=== PATIENT | female | born 1950 | race Caucasian/White ===

== ENCOUNTER 2016-11-08 09:17 | Outpatient (CLI) ==
[2015-09-28 12:36] VITALS: BMI 46.9
--- NOTE | 2016-11-08 10:06 | DI ---
EXAM: LUMBAR SPINE 5 VIEWS HISTORY: Lumbar facet joint arthropathy and degenerative disc disease FINDINGS / IMPRESSION: [No scoliosis. Sacroiliac joints are within normal limits. Bilateral obliq ue views reveal intact pars interarticularis structures. There is moderate to severe degenerative f acet disease lumbosacral junction. Minimal anterior spondylolisthesis of L4 on L5 by approximately 0.44 cm. No loss of vertebral body height or acute fracture.
== END 2016-11-08 09:18 | disposition home or self-care (01) ==
LOC: RAD 09:17
PROVIDERS: ATTEND Pain Medicine Interventional Pain Medicine
DX: M47.816 Spondylosis without myelopathy or radiculopathy, lumbar region (principal); M47.817 Spondylosis without myelopathy or radiculopathy, lumbosacral region; M51.36 Other intervertebral disc degeneration, lumbar region; M51.37 Other intervertebral disc degeneration, lumbosacral region

== ENCOUNTER → 2016-12-28 | Outpatient (RCR) ==
[2015-09-28 12:36] VITALS: BMI 46.9
--- NOTE | 2016-12-09 13:29 | RS.OPPTEV2 ---
Date of Note: 12/08/16 Visit #: 1 Date of Evaluation: 12/08/16 Payer Source: Medicaid Date of Onset/Injury/Change in Status: 11/12/16 Surgery Performed?: Yes (right TKA) Date of Procedure: 11/12/16 Treatment Diagnosis: Right knee pain, stiffness, s/p Right TKA History of Condition/Mechanism of Injury:: Patient has had no other surgeries to this right knee. She had Left TKA in 2007 and had to have a revision in 2009. Prior Level of Function.....Patient was independent with: ADL's, Self Care, Caregiving, Ambulation/Mobility, Community Integration/Access Functional Limitations: Sleep, Self Care, ADL's, Reaching, Pushing, Pulling, Lifting, Carrying, Sitting, Standing, Bending, Squatting, Ambulation, Community Access/Integration Current Subjective/complaints:: Patient reports she was at [facility] for 2 weeks for therapy. She was discharged home a week ago on 11/30/16. She had her anali removed a week ago today. She is currently staying at her boyfriend's home. There are no steps at his home. She is ambulating with a rolling walker , but states she has ambulated in the house without it, holding onto furniture. Reports pain in the knee and lower leg. States she had a blister on her heel following surgery, which is now mostly healed. States her low back has been bothering her more than her knee. Treatment Side (optional): Right *Precautions: LATEX ALLERGY Medical History Medical History: Hypertension, COPD, Diabetes, Arthritis Surgical History Comments:: Left TKA 2007, revision 2009. Right TKA 11/12/16 Smoking Status: Never smoker Patient's Goals: States she wants to return to her previous level of function. Pain Assessment - Pain Description Pain Location: right knee and lower leg Pain Description: Throbbing, Aching Current Pain Intensity: 4-5/10 Functional Outcome Measure LE Functional Scale: 24 (24/80=70% impairment) - G Codes & Severity Modifier G Codes & Modifier: NA Source of G Code score: NA Observation - Observation Inspection: Right knee presents with a well healing, clean incision line. Swelling is present throughout the knee, lower leg, and ankle. Girth Measurement Lower: Right malleoi 29.5 cm, tibial plateau 43 cm Gait - Gait Pattern Gait Comments: Patient ambulates with a rolling walker with decreased stance phase on the right LE. Demonstrates decreased Right knee and hip flexion on the right during swing phase. Also does no demonstrate full heel strike on the right LE. - Left Knee ROM Left Knee Extension: full extension Left Knee Flexion: 112 (degrees AROM) - Right Knee ROM Right Knee Extension: -15 degrees from full extension Right Knee Flexion: 82 (degrees AROM) Knee ROM Limitations: Soft Tissue Tightness, Pain - Left Knee Strength Left Knee Extension: 5 Normal Left Knee Flexion: 5 Normal - Right Knee Strength Right Knee Extension: 4- Good- Right Knee Flexion: 4- Good- Sensation - Sensation Comments: Reports decreased sensation along the lateral side of the incision. States palmar aspect of the right foot also has less sensation. Interventions - Exercise/Activities/Manual Therapy Exercises/Activities: Patient assisted with right knee ROM into flexion/ extension. She performs Quad sets, SLR, SAQ's without weight, and HS curls and DF with red theraband. Manual Therapy: NA HOME EXERCISE PROGRAM: Patient advised to continue with exercises she was given at the hospital, with emphasis on ROM. - Charges Total Direct Minutes: 49 mins Total Treatment Time: 49 mins Procedures billed for this date of service:: EVAL medium Assessment Assessment: Patient presents s/p right TKA. She demonstrates limited right knee AROM and weakness in the quads and HS. Her ambulation currently requires a rolling walker and she demonstrates several gait deviations. She is limited with her abilities with selfcare and ADL's due to limited knee ROM. She will benefit from therapy to regain functional right knee AROM to be able to perform all activities independently and ambulate without assistive device. Patient Education: Education of diagnosis, Body/Joint mechanics, Home Exercise Program, Home Safety, Activity Modification, Education of Plan of Care Rehab Potential: Good Short Term Goals Goal #1: Right knee extension to -5 degrees. Goal to be met by: 12/23/16 Goal #2: Right knee active flexion to 105 degrees. Goal to be met by: 12/30/16 Goal #3: Right quad strength 4+/5. Goal to be met by: 12/30/16 Goal #4: Patient independent with basic HEP. Goal to be met by: 12/23/16 Group Home Goals Goal #1: Pt knows HEP and to continue exercises to maintain functional level at D/C. Goal to be met by: 01/23/17 Goal #2: Score on LE functional scale improved to 54/80. Goal to be met by: 01/23/17 Goal #3: Right knee AROM WFL's for pt to perform all selfcare and ADL's. Goal to be met by: 01/23/17 Goal #4: Pt to amb. w/o assistive device community distances w/ min. gait deviation. Goal to be met by: 01/23/17 Plan - Treatment to be Provided Procedures: Therapeutic Exercises, Therapeutic Activity, Gait Training, Manual Therapy, Patient Education Modalities: Electrical Stimulation, Cryotherapy, Hot Packs - Treatment Plan Frequency: 3 X week Duration: 6 weeks ORDER # VISITS AND/OR THROUGH DATE: 01/23/17 - Treatment Code (1) Knee pain Qualifiers: Laterality: right Chronicity: acute Qualified Description: Acute pain of right knee Qualifier Code(s): (M25.561) Pain in right knee (2) Knee stiffness Qualifiers: Laterality: right Qualified Description: Knee stiffness, right Qualifier Code(s): (M25.661) Stiffness of right knee, not elsewhere classified (3) Aftercare following joint replacement surgery Qualifiers: Joint replacement surgery site: knee Laterality: right Qualified Description: Aftercare following right knee joint replacement surgery Qualifier Code(s): (Z47.1) Aftercare following joint replacement surgery, ( Z96.651) Presence of right artificial knee joint
--- NOTE | 2016-12-09 16:27 | RS.OPPTDN ---
Subjective Date of Note: 12/09/16 Visit #: 2 Date of Evaluation: 12/08/16 Payer Source: Medicaid Treatment Diagnosis: Right knee pain, stiffness, s/p Right TKA Current Subjective/complaints:: Patient reports being very sore all last night. States pain medication and ice did not help ease the pain. *Precautions: LATEX ALLERGY Pain Assessment - Pain Description Pain Location: right knee and lower leg Pain Description: Throbbing, Aching Current Pain Intensity: 4-5/10 - Treatment Modality: Electrical Stim Unattended Parameters/Method Applied: 4 large pads crossed current to right knee X 15 mins at 145 peak volts. Patient Position: Supine - Heat/Cryotherapy Treatment: Cryotherapy (with Estim to the right knee) Interventions - Exercise/Activities/Manual Therapy Exercises/Activities: Patient assisted with right knee ROM into flexion/ extension. She performs Quad sets with towel roll under ankle, SLR's, SAQ's w/ 2# weight, and HS curls and DF with red theraband. Total minutes of Exercise: X 20 mins Manual Therapy: NA HOME EXERCISE PROGRAM: Patient advised to continue with exercises she was given at the hospital, with emphasis on ROM. - Charges Total Direct Minutes: 20 mins Total Treatment Time: 35 mins Procedures billed for this date of service:: CP, EStim, Ex Assessment: Patient reported significant soreness following yesterday's visit. Tolerated exercises well today and reported less discomfort after Estim/CP. Will benefit from continued exercises and modalities. Patient Education: Education of diagnosis, Body/Joint mechanics, Home Exercise Program, Home Safety, Activity Modification, Education of Plan of Care Patient demonstrates compliance with HEP?: Yes Short Term Goals Goal #1: Right knee extension to -5 degrees. Goal to be met by: 12/23/16 Goal #2: Right knee active flexion to 105 degrees. Goal to be met by: 12/30/16 Goal #3: Right quad strength 4+/5. Goal to be met by: 12/30/16 Goal #4: Patient independent with basic HEP. Goal to be met by: 12/23/16 Correction Goals Goal #1: Pt knows HEP and to continue exercises to maintain functional level at D/C. Goal to be met by: 01/23/17 Goal #2: Score on LE functional scale improved to 54/80. Goal to be met by: 01/23/17 Goal #3: Right knee AROM WFL's for pt to perform all selfcare and ADL's. Goal to be met by: 01/23/17 Goal #4: Pt to amb. w/o assistive device community distances w/ min. gait deviation. Goal to be met by: 01/23/17 Plan PLAN OF CARE EXPIRES ON:: 01/23/17 ORDER # VISITS AND/OR THROUGH DATE: 01/23/17 PLAN: Continue Plan of Care
--- NOTE | 2016-12-13 16:29 | RS.OPPTDN ---
Subjective Date of Note: 12/13/16 Visit #: 3 Date of Evaluation: 12/08/16 Payer Source: Medicaid Treatment Diagnosis: Right knee pain, stiffness, s/p Right TKA Current Subjective/complaints:: Patient says she "over did it" yesterday. States she cleaned her home and vacuumed causing increased swelling and pain to the R knee. She says she is able to see improvement with mobility however, with beginning therapy. *Precautions: LATEX ALLERGY Pain Assessment - Pain Description Pain Location: right knee and lower leg Pain Description: Throbbing, Aching Current Pain Intensity: "more today" - Treatment Modality: Electrical Stim Unattended Parameters/Method Applied: Hivolt 4 large pads cross current @ 170-200 pk volts to the R knee after therex x 20 mins Patient Position: Supine - Heat/Cryotherapy Treatment: Cryotherapy Interventions - Exercise/Activities/Manual Therapy Exercises/Activities: Patient assisted with right knee ROM into flexion/ extension, stretching to the heel cords. Patellar mobs, QS several times with ankle over bolster and then without. Rec's stretching for extension with ankle over bolster. She performs SLR's, SAQ's w/ 2# weight, and HS curls and DF with red latex free theraband. Hip abd, pillow squeezes, heel slides with overpressures by MEMBER OF TECH[employer]ICAL [employer]. Total minutes of Exercise: 26 Manual Therapy: NA HOME EXERCISE PROGRAM: Patient advised to continue with exercises she was given at the hospital, with emphasis on ROM. - Charges Total Direct Minutes: 26 Total Treatment Time: 46 Procedures billed for this date of service:: cp, estim (un), ex2 Assessment: Patient with elevated pain over the weekend related to house cleaning. She performed all therex well today, with only slight discomfort. General fatigue noted with SLR. Modalities eased symptoms greatly. Patient Education: Education of diagnosis, Body/Joint mechanics, Home Exercise Program, Home Safety, Activity Modification, Education of Plan of Care Patient demonstrates compliance with HEP?: Yes Short Term Goals Goal #1: Right knee extension to -5 degrees. Goal to be met by: 12/23/16 Goal #2: Right knee active flexion to 105 degrees. Goal to be met by: 12/30/16 Goal #3: Right quad strength 4+/5. Goal to be met by: 12/30/16 Goal #4: Patient independent with basic HEP. Goal to be met by: 12/23/16 Jail Goals Goal #1: Pt knows HEP and to continue exercises to maintain functional level at D/C. Goal to be met by: 01/23/17 Goal #2: Score on LE functional scale improved to 54/80. Goal to be met by: 01/23/17 Goal #3: Right knee AROM WFL's for pt to perform all selfcare and ADL's. Goal to be met by: 01/23/17 Goal #4: Pt to amb. w/o assistive device community distances w/ min. gait deviation. Goal to be met by: 01/23/17 Plan PLAN OF CARE EXPIRES ON:: 01/23/17 ORDER # VISITS AND/OR THROUGH DATE: 01/23/17 PLAN: Progress Exercises
--- NOTE | 2016-12-15 16:45 | RS.OPPTDN ---
Subjective Date of Note: 12/15/16 Visit #: 4 Date of Evaluation: 12/08/16 Payer Source: Medicaid Treatment Diagnosis: Right knee pain, stiffness, s/p Right TKA Current Subjective/complaints:: Patient states last night her feet were so swollen they looked like the skin would explode. States she doesn't know why she has more swelling. She has been icing and elevating her leg. Reports pressure sore on lateral side of right heel is sore. Asks what she can put on it. *Precautions: LATEX ALLERGY Pain Assessment - Pain Description Pain Location: right knee and lower leg Pain Description: Throbbing, Aching Current Pain Intensity: sore - Treatment Modality: Electrical Stim Unattended Parameters/Method Applied: 4 large pads crossed HVGS X 20 mins with cp up to 155 peak volts Patient Position: Supine Comments: following exercises - Heat/Cryotherapy Treatment: Cryotherapy Interventions - Exercise/Activities/Manual Therapy Exercises/Activities: Patient assisted with right knee ROM into flexion/ extension, stretching to the heel cords. Patellar mobs and QS with ankle over bolster. Rec's stretching for extension with ankle over bolster. She performs SLR's, SAQ's w/ 3# weight, and HS curls and DF with red latex free theraband. Patient's cheeks turned red as if she was overheated. stopped exercises and put ice and Estim to knee. Patient given a cup of ice water. Total minutes of Exercise: X 14 mins Manual Therapy: NA HOME EXERCISE PROGRAM: Patient advised to continue with exercises she was given at the hospital, with emphasis on ROM. - Charges Total Direct Minutes: 14 mins Total Treatment Time: 34 mins Procedures billed for this date of service:: Ex, Estim, CP Assessment: Patient tolerates exercises well. She is concerned about swelling in her feet. She is compliant with HEP and icing the knee. Recommended she continue with icing and elevating the knee and HEP. Patient Education: Education of diagnosis, Body/Joint mechanics, Home Exercise Program, Home Safety, Activity Modification, Education of Plan of Care Patient demonstrates compliance with HEP?: Yes Short Term Goals Goal #1: Right knee extension to -5 degrees. Goal to be met by: 12/23/16 Progress towards Goal:: Progressing Goal #2: Right knee active flexion to 105 degrees. Goal to be met by: 12/30/16 Progress towards Goal:: Progressing Goal #3: Right quad strength 4+/5. Goal to be met by: 12/30/16 Progress towards Goal:: Progressing Goal #4: Patient independent with basic HEP. Goal to be met by: 12/23/16 Progress towards Goal:: Progressing [facility] Goals Goal #1: Pt knows HEP and to continue exercises to maintain functional level at D/C. Goal to be met by: 01/23/17 Goal #2: Score on LE functional scale improved to 54/80. Goal to be met by: 01/23/17 Goal #3: Right knee AROM WFL's for pt to perform all selfcare and ADL's. Goal to be met by: 01/23/17 Goal #4: Pt to amb. w/o assistive device community distances w/ min. gait deviation. Goal to be met by: 01/23/17 Plan PLAN OF CARE EXPIRES ON:: 01/23/17 ORDER # VISITS AND/OR THROUGH DATE: 01/23/17 PLAN: Progress Exercises
--- NOTE | 2016-12-17 16:19 | RS.OPPTDN ---
Subjective Date of Note: 12/17/16 Visit #: 5 Date of Evaluation: 12/08/16 Payer Source: Medicaid Treatment Diagnosis: Right knee pain, stiffness, s/p Right TKA Current Subjective/complaints:: Patient states right knee is sore today. States she has been out most of the day running errands. She is performing exercises at home, trying bend the knee. *Precautions: LATEX ALLERGY Pain Assessment - Pain Description Pain Location: right knee and lower leg Pain Description: Throbbing, Aching Current Pain Intensity: sore - Treatment Modality: Electrical Stim Unattended Parameters/Method Applied: 4 large pads, one lead to each side of leg X 20 mins with CP. lateral knee lead up to 250 peak volts, medial region lead taken to 180 peak volts. Patient Position: Supine - Heat/Cryotherapy Treatment: Cryotherapy Interventions - Exercise/Activities/Manual Therapy Exercises/Activities: Patient assisted with right knee ROM into flexion/ extension, stretching to the heel cords. Patellar mobs and QS with ankle over bolster. Rec's stretching for extension with ankle over bolster. She performs SLR's, SAQ's w/ 4# weight, and HS curls and DF with red latex free theraband. Performed on stationary bike for pedal rocks and then was able to make full revolution with slight right hip hiking. Total minutes of Exercise: X 19 mins Manual Therapy: NA HOME EXERCISE PROGRAM: Patient advised to continue with exercises she was given at the hospital, with emphasis on ROM. - Charges Total Direct Minutes: 19 mins Total Treatment Time: 39 mins Procedures billed for this date of service:: Ex, CP , Estim Assessment: Patient tolerates exercises well. She demonstrates good tolerance with exercises. Right knee flexion and extension is gradually improving. Swelling continues to limit ROM. Patient Education: Education of diagnosis, Body/Joint mechanics, Home Exercise Program, Home Safety, Activity Modification, Education of Plan of Care Patient demonstrates compliance with HEP?: Yes Short Term Goals Goal #1: Right knee extension to -5 degrees. Goal to be met by: 12/23/16 Progress towards Goal:: Progressing Goal #2: Right knee active flexion to 105 degrees. Goal to be met by: 12/30/16 Progress towards Goal:: Progressing Goal #3: Right quad strength 4+/5. Goal to be met by: 12/30/16 Progress towards Goal:: Progressing Goal #4: Patient independent with basic HEP. Goal to be met by: 12/23/16 Progress towards Goal:: Progressing Longterm Goals Goal #1: Pt knows HEP and to continue exercises to maintain functional level at D/C. Goal to be met by: 01/23/17 Goal #2: Score on LE functional scale improved to 54/80. Goal to be met by: 01/23/17 Goal #3: Right knee AROM WFL's for pt to perform all selfcare and ADL's. Goal to be met by: 01/23/17 Progress towards goal: Progressing Goal #4: Pt to amb. w/o assistive device community distances w/ min. gait deviation. Goal to be met by: 01/23/17 Plan PLAN OF CARE EXPIRES ON:: 01/23/17 ORDER # VISITS AND/OR THROUGH DATE: 01/23/17 PLAN: Progress Exercises
--- NOTE | 2016-12-20 12:50 | RS.OPPTDN ---
Subjective Date of Note: 12/20/16 Visit #: 6 Date of Evaluation: 12/08/16 Payer Source: Medicaid Treatment Diagnosis: Right knee pain, stiffness, s/p Right TKA Current Subjective/complaints:: Reports doing her exercises at home as tolerated. *Precautions: LATEX ALLERGY Pain Assessment - Pain Description Pain Location: right knee and lower leg Pain Description: Throbbing, Aching Current Pain Intensity: not rated - Treatment Modality: Electrical Stim Unattended Parameters/Method Applied: 20 mins. high volt,lateral aspect of knee @ 325pv, medial aspect of knee @ 235pv. Patient Position: Supine - Heat/Cryotherapy Treatment: Cryotherapy (concurrent with e-stim) Interventions - Exercise/Activities/Manual Therapy Exercises/Activities: 20 mins. total TKA protocol in supine today with 4# resistance for AROm,except for ankle pumps done with latex free red theraband exercises.Grade I and II mobs for AP glides.Extension is WNL passively,flexion ais 95 actively,100 with stretch(but painful). Total minutes of Exercise: 20 Manual Therapy: NA HOME EXERCISE PROGRAM: Patient advised to continue with exercises she was given at the hospital, with emphasis on ROM. - Charges Total Direct Minutes: 20 Total Treatment Time: 40 Procedures billed for this date of service:: ex,cp,e-stim Assessment: Patient has good undestanding of the knee protocol,as she has had 2 previous surgeries on the L knee.The R knee has minimal warmth present today.She is motivated to improve.no antalgia present with using the rolling walker. Patient Education: Body/Joint mechanics, Home Exercise Program, Home Safety, Activity Modification, Education of Plan of Care Patient demonstrates compliance with HEP?: Yes Short Term Goals Goal #1: Right knee extension to -5 degrees. Goal to be met by: 12/23/16 (0 passively) Progress towards Goal:: Progressing Goal #2: Right knee active flexion to 105 degrees. Goal to be met by: 12/30/16 Progress towards Goal:: Progressing Goal #3: Right quad strength 4+/5. Goal to be met by: 12/30/16 Progress towards Goal:: Progressing Goal #4: Patient independent with basic HEP. Goal to be met by: 12/23/16 Progress towards Goal:: Progressing Video Clerk Goals Goal #1: Pt knows HEP and to continue exercises to maintain functional level at D/C. Goal to be met by: 01/23/17 Progress towards goal: Progressing Goal #2: Score on LE functional scale improved to 54/80. Goal to be met by: 01/23/17 Goal #3: Right knee AROM WFL's for pt to perform all selfcare and ADL's. Goal to be met by: 01/23/17 Progress towards goal: Progressing Goal #4: Pt to amb. w/o assistive device community distances w/ min. gait deviation. Goal to be met by: 01/23/17 Progress towards goal: Progressing Plan PLAN OF CARE EXPIRES ON:: 01/23/17 ORDER # VISITS AND/OR THROUGH DATE: 01/23/17 PLAN: Continue Plan of Care
--- NOTE | 2016-12-21 16:40 | RS.OPPTDN ---
Subjective Date of Note: 12/21/16 Visit #: 7 Date of Evaluation: 12/08/16 Payer Source: Medicaid Treatment Diagnosis: Right knee pain, stiffness, s/p Right TKA Current Subjective/complaints:: Patient says her knee is more stiff than painful. Reports she is "moving around well." She is using a grocery cart when shopping and still relies on her RW at home and in the community. She says she returns to her ortho tomorrow. *Precautions: LATEX ALLERGY Pain Assessment - Pain Description Pain Location: right knee and lower leg Pain Description: Throbbing, Aching Current Pain Intensity: mild - Treatment Modality: Electrical Stim Unattended Parameters/Method Applied: hivolt 4 large pads @ 155-230 pk volts cross current x 20 mins AFTER therex Patient Position: Supine - Heat/Cryotherapy Treatment: Cryotherapy Interventions - Exercise/Activities/Manual Therapy Exercises/Activities: Patient receives passive stretching of heel cords, R knee flex/ext, and ext over bolster. Patellar mobs, joint mobs Grades I-II. She performs: QS, HS, SAQ 4#, SLR, DF LATEX FREE red tband, Ball squeezes, hip abd in hooklying with LATEX FREE red tband, all 2/10 reps. Ended with further stretching. Sitting: LAQ. Stationary bike for/retro x 3 mins with one rest. Total minutes of Exercise: 32 Manual Therapy: NA HOME EXERCISE PROGRAM: Patient advised to continue with exercises she was given at the hospital, with emphasis on ROM. - Objective Findings Observations,measurements,etc.: -9 to 92 degrees hip at 90/90 and after therex - Charges Total Direct Minutes: 32 Total Treatment Time: 52 Procedures billed for this date of service:: cp, estim (un), ex2 Assessment: Patient progressing well with all therex. Natasha increased stretching for flexion. Pain level remains mild and incision well healed. Patient Education: Education of diagnosis, Body/Joint mechanics, Home Exercise Program, Home Safety, Activity Modification, Education of Plan of Care Patient demonstrates compliance with HEP?: Yes Short Term Goals Goal #1: Right knee extension to -5 degrees. Goal to be met by: 12/23/16 (0 passively) Progress towards Goal:: Progressing Goal #2: Right knee active flexion to 105 degrees. Goal to be met by: 12/30/16 Progress towards Goal:: Progressing Goal #3: Right quad strength 4+/5. Goal to be met by: 12/30/16 Progress towards Goal:: Progressing Goal #4: Patient independent with basic HEP. Goal to be met by: 12/23/16 Progress towards Goal:: Progressing [facility] Goals Goal #1: Pt knows HEP and to continue exercises to maintain functional level at D/C. Goal to be met by: 01/23/17 Progress towards goal: Progressing Goal #2: Score on LE functional scale improved to 54/80. Goal to be met by: 01/23/17 Goal #3: Right knee AROM WFL's for pt to perform all selfcare and ADL's. Goal to be met by: 01/23/17 Progress towards goal: Progressing Goal #4: Pt to amb. w/o assistive device community distances w/ min. gait deviation. Goal to be met by: 01/23/17 Progress towards goal: Progressing Plan PLAN OF CARE EXPIRES ON:: 01/23/17 ORDER # VISITS AND/OR THROUGH DATE: 01/23/17 PLAN: Progress Exercises
--- NOTE | 2016-12-24 08:44 | RS.OPPTDN ---
Subjective Date of Note: 12/23/16 Visit #: 8 Date of Evaluation: 12/08/16 Payer Source: Medicaid Treatment Diagnosis: Right knee pain, stiffness, s/p Right TKA Current Subjective/complaints:: patient states she saw her doctor. She has been told she can now drive. States she is going to start Tuesday. Reports continued numbness in the ball of the right foot. Heel is feeling better. States bed time is the most painful time for her. She goes to bed with ice on the knee. States she has been going a little in her house without a walker, holding onto furniture or kasper. *Precautions: LATEX ALLERGY Pain Assessment - Pain Description Pain Location: right knee and lower leg Pain Description: Throbbing, Aching Current Pain Intensity: mild Interventions - Exercise/Activities/Manual Therapy Exercises/Activities: Patient receives passive stretching of heel cords, R knee flex/ext, and ext over bolster. Patellar mobs, joint mobs Grades I-II. She performs: QS, HS, SAQ 4#, SLR, DF LATEX FREE red tband, Ball squeezes, hip abd in hooklying with LATEX FREE red tband, all 2/10 reps. Ended with further stretching. Sitting: LAQ. Total minutes of Exercise: X 27 mins Manual Therapy: NA HOME EXERCISE PROGRAM: Patient advised to continue with exercises she was given at the hospital, with emphasis on ROM. - Objective Findings Observations,measurements,etc.: 95 degree Active flexion. - Charges Total Direct Minutes: 27 mins Total Treatment Time: 47 mins Procedures billed for this date of service:: CP, EStim,EX Assessment: Patient tolerates exercises well. She continues to demonstrate swelling that is benefitting from use of CP and Estim. Flexion continues to be limited to 90-95 degrees actively. Patient Education: Education of diagnosis, Body/Joint mechanics, Home Safety, Activity Modification Patient demonstrates compliance with HEP?: Yes Short Term Goals Goal #1: Right knee extension to -5 degrees. Goal to be met by: 12/23/16 (0 passively) Progress towards Goal:: Progressing Goal #2: Right knee active flexion to 105 degrees. Goal to be met by: 12/30/16 Progress towards Goal:: Progressing Goal #3: Right quad strength 4+/5. Goal to be met by: 12/30/16 Progress towards Goal:: Progressing Goal #4: Patient independent with basic HEP. Goal to be met by: 12/23/16 Progress towards Goal:: Progressing Dental Manager Goals Goal #1: Pt knows HEP and to continue exercises to maintain functional level at D/C. Goal to be met by: 01/23/17 Progress towards goal: Progressing Goal #2: Score on LE functional scale improved to 54/80. Goal to be met by: 01/23/17 Goal #3: Right knee AROM WFL's for pt to perform all selfcare and ADL's. Goal to be met by: 01/23/17 Progress towards goal: Progressing Goal #4: Pt to amb. w/o assistive device community distances w/ min. gait deviation. Goal to be met by: 01/23/17 Progress towards goal: Progressing Plan PLAN OF CARE EXPIRES ON:: 01/23/17 ORDER # VISITS AND/OR THROUGH DATE: 01/23/17 PLAN: Progress Exercises
--- NOTE | 2016-12-28 17:13 | RS.OPPTDN ---
Subjective Date of Note: 12/28/16 Visit #: 9 Date of Evaluation: 12/08/16 Payer Source: Medicaid Treatment Diagnosis: Right knee pain, stiffness, s/p Right TKA Current Subjective/complaints:: Patient reports the weather has her hurting more today. States knee hurts along with back and right shoulder. She is working on exercises at home. Right heel continues to improve. *Precautions: LATEX ALLERGY Pain Assessment - Pain Description Pain Location: right knee and lower leg Pain Description: Throbbing, Aching Current Pain Intensity: mild - Treatment Modality: Electrical Stim Unattended Parameters/Method Applied: 4 large pads, one lead to the lateral side of the knee and one lead to the medial side. with cp X 20 mins HVGS . Lateral side up to 400 peak volts, medial side up to 190 peak volts. Patient Position: Supine - Heat/Cryotherapy Treatment: Cryotherapy (with EStim) Interventions - Exercise/Activities/Manual Therapy Exercises/Activities: Patient receives passive stretching of heel cord and HS. Assisted with right knee flexion extension, Patellar mobs. She performs: QS, HS, SAQ 5#, SLR, DF and HS curls with LATEX FREE red tband. Sitting on [employer] chair we worked on knee flexion using contract/relax technigue. Total minutes of Exercise: 35 mins Manual Therapy: NA HOME EXERCISE PROGRAM: Patient advised to continue with exercises she was given at the hospital, with emphasis on ROM. - Objective Findings Observations,measurements,etc.: right knee active extension -3 degrees to 97 degrees flexion. - Charges Total Direct Minutes: 35 mins Total Treatment Time: 55 mins Procedures billed for this date of service:: EX2, CP, Estim Assessment: Patient with continued limitation of right knee flexion and extension. She demonstrates the need for continued skilled therapy to gain further functional right knee AROM. Patient demonstrates compliance with HEP?: Yes Short Term Goals Goal #1: Right knee extension to -5 degrees. Goal to be met by: 12/23/16 (0 passively) Progress towards Goal:: Met Goal #2: Right knee active flexion to 105 degrees. Goal to be met by: 12/30/16 Progress towards Goal:: Progressing Goal #3: Right quad strength 4+/5. Goal to be met by: 12/30/16 Progress towards Goal:: Progressing Goal #4: Patient independent with basic HEP. Goal to be met by: 12/23/16 Progress towards Goal:: Progressing Correction Goals Goal #1: Pt knows HEP and to continue exercises to maintain functional level at D/C. Goal to be met by: 01/23/17 Progress towards goal: Progressing Goal #2: Score on LE functional scale improved to 54/80. Goal to be met by: 01/23/17 Goal #3: Right knee AROM WFL's for pt to perform all selfcare and ADL's. Goal to be met by: 01/23/17 Progress towards goal: Progressing Goal #4: Pt to amb. w/o assistive device community distances w/ min. gait deviation. Goal to be met by: 01/23/17 Progress towards goal: Progressing Plan PLAN OF CARE EXPIRES ON:: 01/23/17 ORDER # VISITS AND/OR THROUGH DATE: 01/23/17 PLAN: Progress Exercises
== END ==
DX: Z96.651 Presence of right artificial knee joint (principal)

== ENCOUNTER 2017-01-17 09:00 | Outpatient (RCR) ==
[2016-09-14 10:39] VITALS: BMI 46.9
--- NOTE | 2016-12-29 12:01 | RS.OPPTDN ---
Subjective Date of Note: 12/29/16 Visit #: 10 Date of Evaluation: 12/08/16 Payer Source: Medicaid Treatment Diagnosis: Right knee pain, stiffness, s/p Right TKA Current Subjective/complaints:: Patient reports tightness right knee joint, but improvement with passive stretching. *Precautions: LATEX ALLERGY Pain Assessment - Pain Description Pain Location: right knee and lower leg Current Pain Intensity: mild - Treatment Modality: Electrical Stim Unattended Parameters/Method Applied: [id number] HVGC to 210p.v. with 4 large pads to the right knee joint with CP following EX. Patient Position: Supine - Heat/Cryotherapy Treatment: Cryotherapy (with Estim ) Interventions - Exercise/Activities/Manual Therapy Exercises/Activities: Began with 7mins on stationary. Sitting on [employer] chair working on knee flexion with contract/relax and passive stretch. In supine, passive stretching of heel cord and HS. Assisted with right knee flexion extension and patellar mobs. QS and HS. SAQ 5#, SLR 2#, 2s/10treps each. Blue latex-free for DF and HS curls, and red latex-free tband for hip add and abd, all 2s/10reps each. Total minutes of Exercise: 25mins/32mins Manual Therapy: NA HOME EXERCISE PROGRAM: Patient advised to continue with exercises she was given at the hospital, with emphasis on ROM. SLR, QS, HS. - Charges Total Direct Minutes: 25mins Total Treatment Time: 52mins Procedures billed for this date of service:: EX2, CP, Estim unattended Assessment: Patient progressing with strengthening and ROM of the right knee. Patient Education: Home Exercise Program Patient demonstrates compliance with HEP?: Yes Short Term Goals Goal #1: Right knee extension to -5 degrees. Goal to be met by: 12/23/16 (0 passively) Progress towards Goal:: Met Goal #2: Right knee active flexion to 105 degrees. Goal to be met by: 12/30/16 Progress towards Goal:: Progressing Goal #3: Right quad strength 4+/5. Goal to be met by: 12/30/16 Progress towards Goal:: Progressing Goal #4: Patient independent with basic HEP. Goal to be met by: 12/23/16 Progress towards Goal:: Progressing Groover And Striper Operator Goals Goal #1: Pt knows HEP and to continue exercises to maintain functional level at D/C. Goal to be met by: 01/23/17 Progress towards goal: Progressing Goal #2: Score on LE functional scale improved to 54/80. Goal to be met by: 01/23/17 Goal #3: Right knee AROM WFL's for pt to perform all selfcare and ADL's. Goal to be met by: 01/23/17 Progress towards goal: Progressing Goal #4: Pt to amb. w/o assistive device community distances w/ min. gait deviation. Goal to be met by: 01/23/17 Progress towards goal: Progressing Plan PLAN OF CARE EXPIRES ON:: 01/23/17 ORDER # VISITS AND/OR THROUGH DATE: 01/23/17 PLAN: Continue Plan of Care
--- NOTE | 2016-12-31 13:17 | RS.OPPTDN ---
Subjective Date of Note: 12/31/16 Visit #: 11 Date of Evaluation: 12/08/16 Payer Source: Medicaid Treatment Diagnosis: Right knee pain, stiffness, s/p Right TKA Current Subjective/complaints:: Reports increase in strength and flexibility right knee. *Precautions: LATEX ALLERGY Pain Assessment - Pain Description Pain Location: right knee and lower leg Current Pain Intensity: mild - Treatment Modality: Electrical Stim Unattended Parameters/Method Applied: [id number] HVGC to 235p.v. 4 large pads with CP to the right knee following EX. Patient Position: Supine - Heat/Cryotherapy Treatment: Cryotherapy ([id number] with Estim) Interventions - Exercise/Activities/Manual Therapy Exercises/Activities: Began with 10mins on stationary bike(not included in total time). Sitting on [employer] chair working on knee flexion with contract/ relax and passive stretch. In supine, passive stretching of heel cord and HS. Assisted with right knee flexion extension and patellar mobs. QS and HS. SAQ 5# , SLR 2#, 2s/10treps each. Blue latex-free for DF and HS curls, and red latex- free tband for hip add and abd, all 2s/10reps each. Total minutes of Exercise: 25mins/35mins Manual Therapy: NA HOME EXERCISE PROGRAM: Patient advised to continue with exercises she was given at the hospital, with emphasis on ROM. SLR, QS, HS. - Objective Findings Observations,measurements,etc.: Full extension of the right knee and passive flexion to 97 degrees. - Charges Total Direct Minutes: 25mins Total Treatment Time: 55mins Procedures billed for this date of service:: EX2, CP, Estim unattended Assessment: Patient progressing with strengthening and with ROM of the right knee joint. Patient Education: Body/Joint mechanics, Home Exercise Program Patient demonstrates compliance with HEP?: Yes Short Term Goals Goal #1: Right knee extension to -5 degrees. Goal to be met by: 12/23/16 (0 passively) Progress towards Goal:: Met Goal #2: Right knee active flexion to 105 degrees. Goal to be met by: 12/30/16 Progress towards Goal:: Progressing Goal #3: Right quad strength 4+/5. Goal to be met by: 12/30/16 Progress towards Goal:: Progressing Goal #4: Patient independent with basic HEP. Goal to be met by: 12/23/16 (100%) Progress towards Goal:: Met Optical Glass Inspector Goals Goal #1: Pt knows HEP and to continue exercises to maintain functional level at D/C. Goal to be met by: 01/23/17 Progress towards goal: Progressing Goal #2: Score on LE functional scale improved to 54/80. Goal to be met by: 01/23/17 Goal #3: Right knee AROM WFL's for pt to perform all selfcare and ADL's. Goal to be met by: 01/23/17 Progress towards goal: Progressing Goal #4: Pt to amb. w/o assistive device community distances w/ min. gait deviation. Goal to be met by: 01/23/17 Progress towards goal: Progressing Plan PLAN OF CARE EXPIRES ON:: 01/23/17 ORDER # VISITS AND/OR THROUGH DATE: 01/23/17 PLAN: Continue Plan of Care
--- NOTE | 2017-01-03 15:29 | RS.OPPTDN ---
Subjective Date of Note: 01/03/17 Visit #: 12 Date of Evaluation: 12/08/16 Payer Source: Medicaid Treatment Diagnosis: Right knee pain, stiffness, s/p Right TKA Current Subjective/complaints:: Patient reporting increased right knee pain and stiffness due to weather. Reports some improvement following exercise and Estim. *Precautions: LATEX ALLERGY Pain Assessment - Pain Description Pain Location: right knee and lower leg Current Pain Intensity: moderate - Treatment Modality: Electrical Stim Unattended Parameters/Method Applied: [id number] HVGC to 430p.v. to the lateral right knee joint and 270p.v. to the medial joint with CP following EX. Patient in supine. Patient Position: Supine - Heat/Cryotherapy Treatment: Cryotherapy Interventions - Exercise/Activities/Manual Therapy Exercises/Activities: Began with 10mins on stationary bike(not included in total time). Sitting on [employer] chair working on knee flexion with contract/ relax and passive stretch. In supine, passive stretching of heel cord and HS. QS and HS. SAQ increased to 7#, SLR 2#, SLR/VMO 2#, 2s/10treps each. Blue latex- free for DF and HS curls, and red latex-free tband for hip add and abd, all 2s/ 10reps each. Isometric hip add. Ended with additional PROM. Total minutes of Exercise: 30mins Manual Therapy: NA HOME EXERCISE PROGRAM: Patient advised to continue with exercises she was given at the hospital, with emphasis on ROM. SLR, QS, HS. - Objective Findings Observations,measurements,etc.: [place] with right knee tightness today. Assisted right knee flexion to 90 degrees at best following stretches. - Charges Total Direct Minutes: 30mins Total Treatment Time: 60mins Procedures billed for this date of service:: EX2, CP, Estim unattended Assessment: Patient with flair-up of pain and stiffness today which she feels is due to weather. Patient Education: Home Exercise Program Patient demonstrates compliance with HEP?: Yes Short Term Goals Goal #1: Right knee extension to -5 degrees. Goal to be met by: 12/23/16 (100%) Progress towards Goal:: Met Goal #2: Right knee active flexion to 105 degrees. Goal to be met by: 12/30/16 Progress towards Goal:: Regressing Goal #3: Right quad strength 4+/5. Goal to be met by: 12/30/16 Progress towards Goal:: Progressing Goal #4: Patient independent with basic HEP. Goal to be met by: 12/23/16 (100%) Progress towards Goal:: Met Corporate Compliance Officer Goals Goal #1: Pt knows HEP and to continue exercises to maintain functional level at D/C. Goal to be met by: 01/23/17 Progress towards goal: Progressing Goal #2: Score on LE functional scale improved to 54/80. Goal to be met by: 01/23/17 Goal #3: Right knee AROM WFL's for pt to perform all selfcare and ADL's. Goal to be met by: 01/23/17 Progress towards goal: Progressing Goal #4: Pt to amb. w/o assistive device community distances w/ min. gait deviation. Goal to be met by: 01/23/17 Progress towards goal: Progressing Plan PLAN OF CARE EXPIRES ON:: 01/23/17 ORDER # VISITS AND/OR THROUGH DATE: 01/23/17 PLAN: Continue Plan of Care (Continue and progress ROM and strengthening to increase patients functional independence.)
--- NOTE | 2017-01-05 16:11 | RS.OPPTDN ---
Subjective Date of Note: 01/05/17 Visit #: 13 Date of Evaluation: 12/08/16 Payer Source: Medicaid Treatment Diagnosis: Right knee pain, stiffness, s/p Right TKA Current Subjective/complaints:: Patient reports some improvement today, but continued right knee pain and joint stiffness. *Precautions: LATEX ALLERGY Pain Assessment - Pain Description Pain Location: right knee and lower leg Current Pain Intensity: moderate - Treatment Modality: Electrical Stim Unattended Parameters/Method Applied: [id number] HVGC 320p.v. 4 large pads cross current to the right knee joint with CP following EX. Patient Position: Supine - Heat/Cryotherapy Treatment: Cryotherapy ([id number] with Estim) Interventions - Exercise/Activities/Manual Therapy Exercises/Activities: Began with 7mins on stationary bike(not included in total time). Sitting on [employer] chair working on knee flexion with contract/relax and passive stretch. In supine, passive stretching of heel cord and HS. QS and HS. SAQ 7#, SLR 2#, SLR/VMO 2#, increased to 3s/10treps each. Blue latex-free for DF and HS curls, and red latex-free tband for hip add and abd, all 2s/10reps each. Isometric hip add. Ended with additional PROM. Total minutes of Exercise: 30mins Manual Therapy: NA HOME EXERCISE PROGRAM: Patient advised to continue with exercises she was given at the hospital, with emphasis on ROM. SLR, QS, HS. - Objective Findings Observations,measurements,etc.: Passive flexion to 101 degrees in sitting following aggressive stretching. - Charges Total Direct Minutes: 30mins Total Treatment Time: 57mins Procedures billed for this date of service:: EX2, CP, Estim unattended Assessment: Patient ROM improving again today. Patient Education: Home Exercise Program Patient demonstrates compliance with HEP?: Yes Short Term Goals Goal #1: Right knee extension to -5 degrees. Goal to be met by: 12/23/16 (100%) Progress towards Goal:: Met Goal #2: Right knee active flexion to 105 degrees. Goal to be met by: 12/30/16 Progress towards Goal:: Progressing Goal #3: Right quad strength 4+/5. Goal to be met by: 12/30/16 Progress towards Goal:: Progressing Goal #4: Patient independent with basic HEP. Goal to be met by: 12/23/16 (100%) Progress towards Goal:: Met Portal Architect Goals Goal #1: Pt knows HEP and to continue exercises to maintain functional level at D/C. Goal to be met by: 01/23/17 Progress towards goal: Progressing Goal #2: Score on LE functional scale improved to 54/80. Goal to be met by: 01/23/17 Goal #3: Right knee AROM WFL's for pt to perform all selfcare and ADL's. Goal to be met by: 01/23/17 Progress towards goal: Progressing Goal #4: Pt to amb. w/o assistive device community distances w/ min. gait deviation. Goal to be met by: 01/23/17 Progress towards goal: Progressing Plan PLAN OF CARE EXPIRES ON:: 01/23/17 ORDER # VISITS AND/OR THROUGH DATE: 01/23/17 PLAN: Continue Plan of Care
--- NOTE | 2017-01-07 14:01 | RS.OPPTDN ---
Subjective Date of Note: 01/07/17 Visit #: 14 Date of Evaluation: 12/08/16 Payer Source: Medicaid Treatment Diagnosis: Right knee pain, stiffness, s/p Right TKA Current Subjective/complaints:: Patient reports elevated pain. Says pain has not let up since her last session. Reports stiffness she feels is also related to the weather. Reports taking pain meds 4 hours before PT session. *Precautions: LATEX ALLERGY Pain Assessment - Pain Description Pain Location: right knee and lower leg Current Pain Intensity: moderate - Treatment Modality: Electrical Stim Unattended Parameters/Method Applied: [employer] 4 large pads crossed x 20 mins to the R knee following exercise @ 185-240 pk volts Patient Position: Supine - Heat/Cryotherapy Treatment: Cryotherapy Interventions - Exercise/Activities/Manual Therapy Exercises/Activities: Began with 7mins on stationary bike(not included in total time). Passive stretching for flexion and contract/relax for the R knee. In supine, passive stretching of heel cord and HS. QS and HS. SAQ 7#, SLR 2#, SLR/ VMO 2#, increased to 3s/10treps each. Blue latex-free for DF and HS curls, and red latex-free tband for hip add and abd, all 2s/10reps each. Isometric hip add. Ended with additional PROM. Total minutes of Exercise: 34 Manual Therapy: NA HOME EXERCISE PROGRAM: Patient advised to continue with exercises she was given at the hospital, with emphasis on ROM. SLR, QS, HS. - Charges Total Direct Minutes: 34 Total Treatment Time: 54 Procedures billed for this date of service:: cp, estim (un), ex2 Assessment: Patient presenting with elevated knee pain and stiffness since her previous appt. She was able to juan jose all therex fairly with pain increasing with flexion stretching. Encouraged patient to take pain meds right before PT appt so that she may juan jose therex better. Patient Education: Education of diagnosis, Body/Joint mechanics, Home Exercise Program, Home Safety, Activity Modification, Education of Plan of Care Patient demonstrates compliance with HEP?: Yes Short Term Goals Goal #1: Right knee extension to -5 degrees. Goal to be met by: 12/23/16 (100%) Progress towards Goal:: Met Goal #2: Right knee active flexion to 105 degrees. Goal to be met by: 12/30/16 Progress towards Goal:: Progressing Goal #3: Right quad strength 4+/5. Goal to be met by: 12/30/16 Progress towards Goal:: Progressing Goal #4: Patient independent with basic HEP. Goal to be met by: 12/23/16 (100%) Progress towards Goal:: Met Entrepreneur Goals Goal #1: Pt knows HEP and to continue exercises to maintain functional level at D/C. Goal to be met by: 01/23/17 Progress towards goal: Progressing Goal #2: Score on LE functional scale improved to 54/80. Goal to be met by: 01/23/17 Goal #3: Right knee AROM WFL's for pt to perform all selfcare and ADL's. Goal to be met by: 01/23/17 Progress towards goal: Progressing Goal #4: Pt to amb. w/o assistive device community distances w/ min. gait deviation. Goal to be met by: 01/23/17 Progress towards goal: Progressing Plan PLAN OF CARE EXPIRES ON:: 01/23/17 ORDER # VISITS AND/OR THROUGH DATE: 01/23/17 PLAN: Progress Exercises
--- NOTE | 2017-01-10 09:58 | RS.OPPTDN ---
Subjective Date of Note: 01/10/17 Visit #: 15 Date of Evaluation: 12/08/16 Payer Source: Medicaid Treatment Diagnosis: Right knee pain, stiffness, s/p Right TKA Current Subjective/complaints:: Patient reports left knee continues to be warm to touch. Continue to have discomfort at end range with stretching and with weight-bearing during ambulation. She has discharged walker and and walking with straight cane. *Precautions: LATEX ALLERGY Pain Assessment - Pain Description Pain Location: right knee and lower leg Current Pain Intensity: moderate - Treatment Modality: Electrical Stim Unattended Parameters/Method Applied: [id number] HVGC with 2 pads to medial knee at 300p.v. and 2 pads to lateral side at 500p.v. with CP following EX. Patient Position: Supine - Heat/Cryotherapy Treatment: Cryotherapy ([id number] with Estim ) Interventions - Exercise/Activities/Manual Therapy Exercises/Activities: Began with passive stretching for flexion and contract/ relax for the R knee while sitting on elevated [employer] chair. Stationary bike 10mins(not included in direct time). In supine, passive stretching of heel cord and HS. QS and HS. SAQ 5#, SLR increased to 3#, SLR/VMO 2#, 3s/10treps each. Blue latex-free for DF and HS curls, 3s/10reps each. Isometric hip add. Ended with additional PROM. Total minutes of Exercise: 25mins/35mins Manual Therapy: NA HOME EXERCISE PROGRAM: Patient advised to continue with exercises she was given at the hospital, with emphasis on ROM. SLR, QS, HS. - Charges Total Direct Minutes: 25mins Total Treatment Time: 55mins Procedures billed for this date of service:: EX2, CP, Estim unattended Assessment: Patient continues to heat and stiffness in the right knee joint. She is consistent with HEP and has progressed to walking with straight cane. Patient Education: Home Exercise Program, Home Safety, Activity Modification Comments: Reviewed safety with cane. Patient demonstrates compliance with HEP?: Yes Short Term Goals Goal #1: Right knee extension to -5 degrees. Goal to be met by: 12/23/16 (100%) Progress towards Goal:: Met Goal #2: Right knee active flexion to 105 degrees. Goal to be met by: 12/30/16 Progress towards Goal:: Progressing Goal #3: Right quad strength 4+/5. Goal to be met by: 12/30/16 Progress towards Goal:: Progressing Goal #4: Patient independent with basic HEP. Goal to be met by: 12/23/16 (100%) Progress towards Goal:: Met Longterm Goals Goal #1: Pt knows HEP and to continue exercises to maintain functional level at D/C. Goal to be met by: 01/23/17 Progress towards goal: Progressing Goal #2: Score on LE functional scale improved to 54/80. Goal to be met by: 01/23/17 Goal #3: Right knee AROM WFL's for pt to perform all selfcare and ADL's. Goal to be met by: 01/23/17 Progress towards goal: Progressing Goal #4: Pt to amb. w/o assistive device community distances w/ min. gait deviation. Goal to be met by: 01/23/17 Progress towards goal: Progressing Plan PLAN OF CARE EXPIRES ON:: 01/23/17 ORDER # VISITS AND/OR THROUGH DATE: 01/23/17 PLAN: Continue Plan of Care
--- NOTE | 2017-01-12 11:40 | RS.OPPTDN ---
Subjective Date of Note: 01/12/17 Visit #: 16 Date of Evaluation: 12/08/16 Payer Source: Medicaid Treatment Diagnosis: Right knee pain, stiffness, s/p Right TKA Current Subjective/complaints:: Patient reports doing better. States she still has days that the left knee feels warm enough that it worries her. She is walking more with a straight cane. States she keeps the walker in the car in case she needs it. *Precautions: LATEX ALLERGY Pain Assessment - Pain Description Pain Location: right knee and lower leg Current Pain Intensity: moderate - Treatment Modality: Electrical Stim Unattended Parameters/Method Applied: 4 large pads, one lead to lateral knee joint and the other lead to the medial region of the knee joint X 20 mins HVGS. Medial knee joint peak volts to 240, and lateral knee joint peak volts 350. Patient Position: Supine - Heat/Cryotherapy Treatment: Cryotherapy (with EStim) Interventions - Exercise/Activities/Manual Therapy Exercises/Activities: Stretching for flexion and contract/relax for the R knee while sitting on elevated [place] chair. Stationary bike 10mins(not included in direct time). In supine, passive stretching of heel cord and HS. QS with pillow roll under ankle. SAQ 5#, SLR increased to 3#, SLR/VMO 2#, 3s/10treps each. Blue latex-free for DF and HS curls, 3s/10reps each. Isometric hip add. Total minutes of Exercise: X 28 mins Manual Therapy: NA HOME EXERCISE PROGRAM: Patient advised to continue with exercises she was given at the hospital, with emphasis on ROM. SLR, QS, HS. - Charges Total Direct Minutes: 28 mins Total Treatment Time: 48 mins Procedures billed for this date of service:: Ex2, Estim, CP Assessment: Patient demonstrates improved knee flexion upon observation compared to last session that I worked with her. She also has progressed away from the walker for ambulation into the department. Patient Education: Education of diagnosis, Body/Joint mechanics, Home Exercise Program Patient demonstrates compliance with HEP?: Yes Short Term Goals Goal #1: Right knee extension to -5 degrees. Goal to be met by: 12/23/16 (100%) Progress towards Goal:: Met Goal #2: Right knee active flexion to 105 degrees. Goal to be met by: 12/30/16 Progress towards Goal:: Progressing Goal #3: Right quad strength 4+/5. Goal to be met by: 12/30/16 Progress towards Goal:: Progressing Goal #4: Patient independent with basic HEP. Goal to be met by: 12/23/16 (100%) Progress towards Goal:: Met [facility] Goals Goal #1: Pt knows HEP and to continue exercises to maintain functional level at D/C. Goal to be met by: 01/23/17 Progress towards goal: Progressing Goal #2: Score on LE functional scale improved to 54/80. Goal to be met by: 01/23/17 Goal #3: Right knee AROM WFL's for pt to perform all selfcare and ADL's. Goal to be met by: 01/23/17 Progress towards goal: Progressing Goal #4: Pt to amb. w/o assistive device community distances w/ min. gait deviation. Goal to be met by: 01/23/17 Progress towards goal: Progressing Plan PLAN OF CARE EXPIRES ON:: 01/23/17 ORDER # VISITS AND/OR THROUGH DATE: 01/23/17 PLAN: Continue Plan of Care
--- NOTE | 2017-01-14 13:22 | RS.OPPTDN ---
Subjective Date of Note: 01/14/17 Visit #: 17 Date of Evaluation: 12/08/16 Payer Source: Medicaid Treatment Diagnosis: Right knee pain, stiffness, s/p Right TKA Current Subjective/complaints:: Patient reports better motion right knee today. *Precautions: LATEX ALLERGY Pain Assessment - Pain Description Pain Location: right knee and lower leg Current Pain Intensity: moderate - Treatment Modality: Electrical Stim Unattended Parameters/Method Applied: [id number] HVGC to 250 p.v. on the medial joint and 500 p.v. on lateral jointline with CP following EX. Patient Position: Supine - Heat/Cryotherapy Treatment: Cryotherapy ([id number] with Estim) Interventions - Exercise/Activities/Manual Therapy Exercises/Activities: [id number]. Stretching for flexion and contract/relax for the R knee while sitting on elevated [employer] chair. Stationary bike 6mins alt forward and retro(not included in direct time). In supine, passive stretching of heel cord. HS and QS. SAQ 5#, SLR 2#, SLR/VMO 2#, 3s/10treps each. Blue latex -free for DF and HS curls, 3s/10reps each. Isometric hip add. Red theraband for hip abd and add with knee in full extension. Total minutes of Exercise: 30mins Manual Therapy: NA HOME EXERCISE PROGRAM: Patient advised to continue with exercises she was given at the hospital, with emphasis on ROM. SLR, QS, HS. - Objective Findings Observations,measurements,etc.: Right knee flexion to 98 degrees. - Charges Total Direct Minutes: 30mins Total Treatment Time: 50mins Procedures billed for this date of service:: EX2, CP, Estim unattended Assessment: Patient progressing with strengthening and ROM. Patient Education: Home Exercise Program Patient demonstrates compliance with HEP?: Yes Short Term Goals Goal #1: Right knee extension to -5 degrees. Goal to be met by: 12/23/16 (100%) Progress towards Goal:: Met Goal #2: Right knee active flexion to 105 degrees. Goal to be met by: 12/30/16 Progress towards Goal:: Progressing Goal #3: Right quad strength 4+/5. Goal to be met by: 12/30/16 Progress towards Goal:: Progressing Goal #4: Patient independent with basic HEP. Goal to be met by: 12/23/16 (100%) Progress towards Goal:: Met [facility] Goals Goal #1: Pt knows HEP and to continue exercises to maintain functional level at D/C. Goal to be met by: 01/23/17 Progress towards goal: Progressing Goal #2: Score on LE functional scale improved to 54/80. Goal to be met by: 01/23/17 Goal #3: Right knee AROM WFL's for pt to perform all selfcare and ADL's. Goal to be met by: 01/23/17 Progress towards goal: Progressing Goal #4: Pt to amb. w/o assistive device community distances w/ min. gait deviation. Goal to be met by: 01/23/17 Progress towards goal: Met Plan PLAN OF CARE EXPIRES ON:: 01/23/17 ORDER # VISITS AND/OR THROUGH DATE: 01/23/17 PLAN: Continue Plan of Care
--- NOTE | 2017-01-17 13:18 | RS.OPPTDN ---
Subjective Date of Note: 01/17/17 Visit #: 18 Date of Evaluation: 12/08/16 Payer Source: Medicaid Treatment Diagnosis: Right knee pain, stiffness, s/p Right TKA Current Subjective/complaints:: Patient reports continued right knee stiffness and discomfort with ambulation. States she has good and bad days. She consistently walks with cane in the community. She states she is doing most light daily activities and will continue HEP following discharge. *Precautions: LATEX ALLERGY Pain Assessment - Pain Description Pain Location: right knee and lower leg Pain Description: stiffness Current Pain Intensity: mild to moderate - Treatment Modality: Electrical Stim Unattended Parameters/Method Applied: [id number] HVGC to 500 p.v. on lateral right knee and 260 p.v. to the medial joint with CP following EX. Patient Position: Supine - Heat/Cryotherapy Treatment: Cryotherapy ([id number] with Estim) Interventions - Exercise/Activities/Manual Therapy Exercises/Activities: [id number]. Stationary bike 6mins(not included in direct time ). Stretching for flexion and contract/relax for the R knee while sitting on elevated [employer] chair. Also in sitting, 4# for right LAQ and red theraband for ham curl, both multiple reps. In supine, passive stretching of heel cord. HS and QS. SAQ 5#, SLR 3#, SLR/VMO 3#, 3s/10treps each. SLR circles cw and ccw, 2# , 2s/10reps. Blue latex-free for DF and HS curls, 3s/10reps each. Isometric hip add. Reviewed and completed all paitent education, HEP, and patient given additional therabands for HEP. Total minutes of Exercise: 30mins Manual Therapy: NA HOME EXERCISE PROGRAM: Patient advised to continue with exercises she was given at the hospital, with emphasis on ROM. SLR, QS, HS. - Objective Findings Observations,measurements,etc.: Active right knee flexion to 93 degrees and passive right knee flexion to 98 degrees. Patient demos full active right knee extension. Patient reassessed the Lower Extremity Functional Scale at 41/80 or 48.75% (was 24/80 or 70% deficit on Eval). - Charges Total Direct Minutes: 35mins Total Treatment Time: 55mins Procedures billed for this date of service:: EX2, CP, Estim unattended Assessment: Patient has progressed well and benefitted from treatment. She continues to have some heat and swelling of the right knee joint. She has progressed with FOM, met 6 of 8 treatment goals, and is independent with HEP. Patient Education: Body/Joint mechanics, Home Exercise Program, Home Safety, Activity Modification, Education of Plan of Care Patient demonstrates compliance with HEP?: Yes Short Term Goals Goal #1: Right knee extension to -5 degrees. Goal to be met by: 12/23/16 (100%) Progress towards Goal:: Met Goal #2: Right knee active flexion to 105 degrees. Goal to be met by: 12/30/16 Progress towards Goal:: Progressing Goal #3: Right quad strength 4+/5. Goal to be met by: 12/30/16 (100%) Progress towards Goal:: Met Goal #4: Patient independent with basic HEP. Goal to be met by: 12/23/16 (100%) Progress towards Goal:: Met Scientific Affairs Manager Goals Goal #1: Pt knows HEP and to continue exercises to maintain functional level at D/C. Goal to be met by: 01/23/17 (100%) Progress towards goal: Met Goal #2: Score on LE functional scale improved to 54/80. Goal to be met by: 01/23/17 (100%) Progress towards goal: Met Goal #3: Right knee AROM WFL's for pt to perform all selfcare and ADL's. Goal to be met by: 01/23/17 (80%) Progress towards goal: Progressing Goal #4: Pt to amb. w/o assistive device community distances w/ min. gait deviation. Goal to be met by: 01/23/17 Progress towards goal: Met Plan PLAN OF CARE EXPIRES ON:: 01/23/17 ORDER # VISITS AND/OR THROUGH DATE: 01/23/17 PLAN: Plan for Discharge Comments:: Discharge with HEP.
--- NOTE | 2017-01-17 13:19 | RS.QUICKDC ---
Discharge from PT Date of Discharge: 01/17/17 Number of Visits: 18 Reason for Discharge: Patient progressed well and benefitted from treatment. She met 6 of 8 treatment goals and was independent with HEP. Active right knee flexion to 93 degrees and passive right knee flexion to 98 degrees. Patient demos full active right knee extension. Patient reassessed the Lower Extremity Functional Scale at 41/80 or 48.75% (was 24/80 or 70% deficit on Eval). Discharge with HEP.
== END 2017-01-28 ==
DX: Z96.651 Presence of right artificial knee joint (principal)

== ENCOUNTER 2017-03-30 11:35 | Outpatient (CLI) ==
[2016-09-14 10:39] VITALS: BMI 46.9
[2017-03-30 11:49] LABS: BASOPHILS # (AUTO) 0.1 K/uL (0-0.2); BASOPHILS % (AUTO) 1.3 % (0.0-3.0); EOSINOPHILS # (AUTO) 0.1 K/ul (0.0-0.7); EOSINOPHILS % (AUTO) 2.1 % (0.0-7.0); HEMATOCRIT 41.9 % (37.0-47.0); IMMATURE GRANULOCYTE % (AUTO) 0.5 % (0.0-5.0); LYMPHOCYTES # (AUTO) 2.1 K/uL (0.60-3.4); LYMPHOCYTES % (AUTO) 33.7 (10.0-50.0); MEAN CORPUSCULAR HEMOGLOBIN 29.1 pg (27.0-31.0); MEAN CORPUSCULAR HGB CONC 33.4 (31.8-35.4); MEAN CORPUSCULAR VOLUME 87.1 fl (81.0-99.0); MONOCYTES # (AUTO) 0.5 K/uL (0.4-2.0); MONOCYTES % (AUTO) 7.6 (0-10); NEUTROPHILS # (AUTO) 3.4 K/ul (2.0-6.9); NEUTROPHILS % (AUTO) 54.8; PLATELET COUNT 213 10^3/uL (140-440); RED BLOOD COUNT 4.81 10^6/ul (4.20-5.40); WHITE BLOOD COUNT 6.15 K/ul (4.6-10.2)
[2017-03-30 12:36] LABS: ALBUMIN 3.6 g/dL (3.4-5.0); ALBUMIN/GLOBULIN RATIO 0.9; ANION GAP 14.5; BILIRUBIN,TOTAL 0.52 mg/dL (0.00-1.20); BUN/CREATININE RATIO 25.92; CALCIUM 9.6 mg/dL (8.2-10.2); CHOL/HDL RATIO 6.3 (4.5-5.5); CREATININE 0.81 mg/dL (0.60-1.30); DIGOXIN 0.33 ng/mL (1.00-2.00); POTASSIUM 3.5 mmol/L (3.5-5.10); TOTAL PROTEIN 7.6 g/dL (5.8-8.1)
== END 2017-03-30 11:36 | disposition home or self-care (01) ==
LOC: LAB 11:35
PROVIDERS: ATTEND Emergency Medicine
DX: E78.5 Hyperlipidemia, unspecified (principal); I48.91 Unspecified atrial fibrillation; I10 Essential (primary) hypertension; G89.29 Other chronic pain; J44.9 Chronic obstructive pulmonary disease, unspecified
CPT/HCPCS: 36415; 80053; 80061; 80162; 84443; 85025

== ENCOUNTER 2017-04-29 08:31 | Outpatient (CLI) ==
[2016-09-14 10:39] VITALS: BMI 46.9
--- NOTE | 2017-04-29 10:34 | US ---
EXAM: Digital diagnostic mammogram and ultrasound left breast HISTORY: Unspecified lump in breast COMPARISON: Mammogram 07/08/2016 FINDINGS: Digital diagnostic mammogram left breast was performed with CC and MLO views and spot compression CC and MLO views. In the left inferior breast approximately 10 cm from the nipple, there is a well ma rginated rounded mass, corresponding to the palpable abnormality, that persists on spot compression imaging. In the left superior breast approximately 15 from the nipple, there is an asymmetry that p ersist on spot compression imaging. Ultrasound left breast was performed in the regions of mammographic abnormality. Ultrasound of the left inferior breast in the area of palpable abnormality and mammographic abnormal ity was performed at the 06-07 o'clock 10 cm from the nipple. In this region there are two cysts wit h posterior through transmission and mild internal echoes and no internal vascularity. One cyst corrie ures 2.0 x 1.4 x 2.1 cm and additional cyst measures 1.8 x 1.1 x 1.9 cm Ultrasound of the left breast in the area of asymmetry was performed. No mass or cyst is identified . An area of shadowing was measured by the technologist; however, this region was personally evalua alessandro on real time examination and the shadowing was demonstrated to be artifactual with no mass or cy st visualized. IMPRESSION: 1. Palpable abnormality corresponds with two mildly complicated left breast cysts. This finding is p robably benign. 2. Additional left breast asymmetry without sonographic correlate. This finding is probably benign. 3. 6-month follow-up mammogram and ultrasound recommended for reevaluation of these findings to ensu re stability.. BIRADS category 3, probably benign
== END 2017-04-29 08:32 | disposition home or self-care (01) ==
LOC: RAD 08:31
PROVIDERS: ATTEND Emergency Medicine
DX: N63 Unspecified lump in breast (principal)

== ENCOUNTER 2017-06-07 10:01 | Outpatient (CLI) ==
[2016-09-14 10:39] VITALS: BMI 46.9
[2017-06-07 10:52] LABS: CHOL/HDL RATIO 6.7 (4.5-5.5)
== END 2017-06-07 10:02 | disposition home or self-care (01) ==
LOC: LAB 10:01
PROVIDERS: ATTEND Emergency Medicine
DX: J44.9 Chronic obstructive pulmonary disease, unspecified (principal); I48.91 Unspecified atrial fibrillation; E78.5 Hyperlipidemia, unspecified; E66.9 Obesity, unspecified
CPT/HCPCS: 36415; 80061; 83036; 84443

== ENCOUNTER 2017-06-17 09:29 | Outpatient (CLI) ==
[2016-09-14 10:39] VITALS: BMI 46.9
[2017-06-17 10:12] LABS: BASOPHILS # (AUTO) 0.1 K/uL (0-0.2); BASOPHILS % (AUTO) 1.2 % (0.0-3.0); EOSINOPHILS # (AUTO) 0.2 K/ul (0.0-0.7); EOSINOPHILS % (AUTO) 2.4 % (0.0-7.0); HEMATOCRIT 40.4 % (37.0-47.0); HEMOGLOBIN 13.7 g/dl (12.0-16.0); IMMATURE GRANULOCYTE % (AUTO) 0.3 % (0.0-5.0); LYMPHOCYTES # (AUTO) 1.8 K/uL (0.60-3.4); LYMPHOCYTES % (AUTO) 27.6 (10.0-50.0); MEAN CORPUSCULAR HEMOGLOBIN 30.9 pg (27.0-31.0); MEAN CORPUSCULAR HGB CONC 33.9 (31.8-35.4); MONOCYTES # (AUTO) 0.4 K/uL (0.4-2.0); MONOCYTES % (AUTO) 6.1 (0-10); NEUTROPHILS # (AUTO) 4.1 K/ul (2.0-6.9); NEUTROPHILS % (AUTO) 62.4; PLATELET COUNT 204 10^3/uL (140-440); RED BLOOD COUNT 4.44 10^6/ul (4.20-5.40); WHITE BLOOD COUNT 6.56 K/ul (4.6-10.2)
[2017-06-17 10:43] LABS: BILIRUBIN,URINE Negative (NEGATIVE); KETONES,URINE Negative (NEGATIVE); LEUKOCYTE ESTERASE ,URINE Negative (NEGATIVE); NITRITE,URINE Negative (NEGATIVE); PROTEIN,URINE Negative (NEGATIVE); URINE, BLOOD 2+ (NEGATIVE)
--- NOTE | 2017-06-17 10:49 | CT ---
EXAM: CT abdomen pelvis without contrast HISTORY: Generalized abdominal pain COMPARISON: Abdominal ultrasound 04/15/2011 TECHNIQUE: Serial axial images of the abdomen pelvis were performed from the lung bases through the inferior pelvis without contrast. These were viewed in multiple planes. FINDINGS: The lung bases demonstrate mild right basilar atelectasis. Evaluation is limited due to lack of contrast. The liver is diffusely low in attenuation. The gall bladder has been resected. The spleen is unremarkable. The adrenal glands are unremarkable. The p ancreas is unremarkable. The kidneys are irregular. There are two large nonobstructing stones on t he right with the largest measuring 1.0 x 0.6 cm. The kidneys demonstrate no hydronephrosis or hydr oureter. Stomach is normal with small hiatal hernia. Small bowel in the abdomen pelvis is unremarkable. The colon is unremarkable. The colon is unremark able. The urinary bladder is partially distended. There has been a hysterectomy. There is a right adnexal low attenuation lesion measuring 1.3 cm. There is no free air, free fluid or lymphadenopat hy. There is multilevel degenerative disease of the spine. IMPRESSION: 1. No acute intra-abdominal or pelvic process to account for patient's symptoms. 2. Hepatic steatosis. 3. Nonobstructing renal stones with irregular appearance of the right kidney likely representing pr ior infarct or infection. 4. Prior cholecystectomy and hysterectomy. Low attenuation lesion in the right adnexa likely repres enting a cyst.
[2017-06-17 10:57] LABS: ADD URINE MICROSCOPIC YES
[2017-06-17 11:02] LABS: ALBUMIN 3.5 g/dL (3.4-5.0); ALBUMIN/GLOBULIN RATIO 0.97; ANION GAP 13.4; BILIRUBIN,TOTAL 0.43 mg/dL (0.00-1.20); BUN/CREATININE RATIO 26.66; CALCIUM 9.3 mg/dL (8.2-10.2); CREATININE 0.75 mg/dL (0.60-1.30); POTASSIUM 3.4 mmol/L (3.5-5.10); TOTAL PROTEIN 7.1 g/dL (5.8-8.1)
== END 2017-06-17 09:30 ==
LOC: RAD 09:29
PROVIDERS: ATTEND Emergency Medicine
DX: E78.5 Hyperlipidemia, unspecified (principal); G89.29 Other chronic pain; N02.9 Recurrent and persistent hematuria with unspecified morphologic changes; R10.84 Generalized abdominal pain
CPT/HCPCS: 36415; 80053; 81001; 85025

== ENCOUNTER 2017-10-12 09:39 | Outpatient (CLI) ==
[2016-09-14 10:39] VITALS: BMI 46.9
[2017-10-12 10:16] LABS: BASOPHILS # (AUTO) 0.1 K/uL (0-0.2); BASOPHILS % (AUTO) 1.1 % (0.0-3.0); EOSINOPHILS # (AUTO) 0.2 K/ul (0.0-0.7); EOSINOPHILS % (AUTO) 3.7 % (0.0-7.0); HEMATOCRIT 41.7 % (37.0-47.0); HEMOGLOBIN 13.7 g/dl (12.0-16.0); IMMATURE GRANULOCYTE % (AUTO) 0.3 % (0.0-5.0); LYMPHOCYTES # (AUTO) 1.8 K/uL (0.60-3.4); LYMPHOCYTES % (AUTO) 29.1 (10.0-50.0); MEAN CORPUSCULAR HGB CONC 32.9 (31.8-35.4); MEAN CORPUSCULAR VOLUME 91.4 fl (81.0-99.0); MONOCYTES # (AUTO) 0.4 K/uL (0.4-2.0); NEUTROPHILS # (AUTO) 3.7 K/ul (2.0-6.9); NEUTROPHILS % (AUTO) 59.8; PLATELET COUNT 203 10^3/uL (140-440); RED BLOOD COUNT 4.56 10^6/ul (4.20-5.40); WHITE BLOOD COUNT 6.18 K/ul (4.6-10.2)
[2017-10-12 10:56] LABS: ALBUMIN 3.3 g/dL (3.4-5.0); ALBUMIN/GLOBULIN RATIO 0.92; ANION GAP 14.1; BILIRUBIN,TOTAL 0.46 mg/dL (0.00-1.20); BUN/CREATININE RATIO 22.89; CALCIUM 9.6 mg/dL (8.2-10.2); CHOL/HDL RATIO 6.4 (4.5-5.5); CREATININE 0.83 mg/dL (0.60-1.30); POTASSIUM 4.1 mmol/L (3.5-5.10); TOTAL PROTEIN 6.9 g/dL (5.8-8.1)
== END 2017-10-12 09:40 | disposition home or self-care (01) ==
LOC: LAB 09:39
PROVIDERS: ATTEND Emergency Medicine
DX: E78.5 Hyperlipidemia, unspecified (principal); E66.9 Obesity, unspecified; G89.29 Other chronic pain; I48.91 Unspecified atrial fibrillation
CPT/HCPCS: 36415; 80053; 80061; 83036; 84443; 85025

== ENCOUNTER 2017-11-18 10:13 | Outpatient (CLI) ==
[2016-09-14 10:39] VITALS: BMI 46.9
== END 2017-11-18 10:14 | disposition home or self-care (01) ==
LOC: LAB 10:13
PROVIDERS: ATTEND Emergency Medicine
DX: R73.9 Hyperglycemia, unspecified (principal)
CPT/HCPCS: 36415; 83036

== ENCOUNTER 2017-12-21 10:08 | Outpatient (CLI) ==
[2016-09-14 10:39] VITALS: BMI 46.9
--- NOTE | 2017-12-21 13:13 | US ---
EXAM: Ultrasound right lower extremity nonvascular HISTORY: Right anterior distal thigh palpable knot near previous incision for knee replacement COMPARISON: None available TECHNIQUE: Multiple earl-scale and color Doppler images FINDINGS: Thick-walled anechoic structure in the subcutaneous tissues of the area of concern measure s approximately 1.3 x 0.7 x 0.8 cm with a single internal septation noted. No other abnormalities ar e seen. IMPRESSION: Complex fluid collection in the area concern could represent old hematoma. Correlate for signs of in fection. MRI would provide further characterization if needed.
== END 2017-12-21 10:09 | disposition home or self-care (01) ==
LOC: RAD 10:08
PROVIDERS: ATTEND Emergency Medicine
DX: M79.651 Pain in right thigh (principal)
CPT/HCPCS: 76882

== ENCOUNTER 2018-01-03 14:07 | Outpatient (CLI) ==
[2016-09-14 10:39] VITALS: BMI 46.9
== END 2018-01-03 14:08 | disposition home or self-care (01) ==
LOC: LAB 14:07
PROVIDERS: ATTEND Emergency Medicine
DX: E78.5 Hyperlipidemia, unspecified (principal); I48.91 Unspecified atrial fibrillation; R31.0 Gross hematuria; R73.9 Hyperglycemia, unspecified
CPT/HCPCS: 36415; 81001; 83036; 85025

== ENCOUNTER 2018-03-16 10:31 | Outpatient (CLI) ==
[2016-09-14 10:39] VITALS: BMI 46.9
== END 2018-03-16 10:32 | disposition home or self-care (01) ==
LOC: LAB 10:31
PROVIDERS: ATTEND Emergency Medicine
DX: E78.5 Hyperlipidemia, unspecified (principal); E66.9 Obesity, unspecified; G25.81 Restless legs syndrome; I48.91 Unspecified atrial fibrillation; J44.9 Chronic obstructive pulmonary disease, unspecified
CPT/HCPCS: 36415; 80053; 80061; 84443; 85025

== ENCOUNTER 2018-04-05 09:59 | Outpatient (CLI) ==
[2016-09-14 10:39] VITALS: BMI 46.9
== END 2018-04-05 10:00 | disposition home or self-care (01) ==
LOC: LAB 09:59
PROVIDERS: ATTEND Emergency Medicine
DX: E11.9 Type 2 diabetes mellitus without complications (principal)
CPT/HCPCS: 36415; 83036

== ENCOUNTER 2018-05-05 08:39 | Outpatient (CLI) ==
[2016-09-14 10:39] VITALS: BMI 46.9
--- NOTE | 2018-05-05 11:22 | MAMMO ---
EXAM: Bilateral digital screening mammogram (2-D and 3-D) History: Screening Comparison: Left diagnostic mammogram 04/29/2017, bilateral mammogram 07/08/2016 Findings: MLO and CC views of bilateral breasts demonstrate scattered fibroglandular breast parenchy ma. CAD was reviewed by the radiologist. Tomosynthesis was performed. Stable benign bilateral breas t nodular densities. Stable benign bilateral breast calcifications. Biopsy clip again seen within t he right breast. There are no developing masses and no suspicious microcalcifications. Impression: Benign stable mammogram. Recommend followup routine screening mammography in 1 year. BIRADS 2
== END 2018-05-05 08:40 | disposition home or self-care (01) ==
LOC: RAD 08:39
PROVIDERS: ATTEND Emergency Medicine
DX: Z12.31 Encounter for screening mammogram for malignant neoplasm of breast (principal)
CPT/HCPCS: 77067

== ENCOUNTER 2018-05-18 09:46 | Outpatient (CLI) ==
[2016-09-14 10:39] VITALS: BMI 46.9
== END 2018-05-18 09:47 | disposition home or self-care (01) ==
LOC: LAB 09:46
PROVIDERS: ATTEND Emergency Medicine
DX: I48.91 Unspecified atrial fibrillation (principal); E11.9 Type 2 diabetes mellitus without complications
CPT/HCPCS: 36415; 80053; 80162; 82043

== ENCOUNTER 2018-05-29 08:23 | Outpatient (CLI) ==
[2016-09-14 10:39] VITALS: BMI 46.9
--- NOTE | 2018-05-29 11:10 | CT ---
EXAM: CT Abdomen without contrast. CT Pelvis without contrast. HISTORY: Left flank pain. Generalized abdominal pain. Nephrolithiasis. COMPARISON: 06/17/2017, 11/02/2012. TECHNIQUE: Multiple axial images of the abdomen and pelvis were obtained without intravenous contras t. Images were reformatted in the sagittal and coronal plane. FINDINGS: Please note that evaluation of the abdominal and pelvic structures is limited due to lack of intravenous contrast. No acute abnormality identified in the lung bases. Linear subsegmental atelectasis or scarring in th e right lower lobe noted. Degenerative changes seen in the spine. Gallbladder is absent. The liver is enlarged and low density. The pancreas, spleen, adrenal glands demonstrate normal contour. 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 No left renal calculi are seen. Probable peripherally calcified right renal artery aneurysm measuring 1.2 cm on axial image 59 is als o stable. There are old left renal calculi measuring up to 1 cm in the right renal pelvis. No signi ficant right hydronephrosis identified. There is no ureteral or bladder calculi identified. The pipo dder is unremarkable. Uterus is absent. Phleboliths seen in the pelvis. There is no evidence for bowel obstruction or acute inflammation. Small hiatal hernia noted. The ap pendix is not seen. Atherosclerotic calcifications are present. Small fat-containing umbilical ruddy ia noted. No free air detected. IMPRESSION: 1. Stable right nephrolithiasis without obstructive uropathy. 2. Hepatomegaly with fatty infiltration of the liver. 3. 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
== END 2018-05-29 08:24 | disposition home or self-care (01) ==
LOC: RAD 08:23
PROVIDERS: ATTEND Emergency Medicine
DX: R10.84 Generalized abdominal pain (principal); N20.0 Calculus of kidney

== ENCOUNTER 2018-06-29 09:14 | Emergency (ER) ==
[2018-06-29 09:26] VITALS: BP 112/69; TEMP 97.8; BMI 46.5
--- NOTE | 2018-06-29 09:55 | ED.PDOC ---
General ED Provider: Dr. SAIGE ALANIS Chief Complaint: Urinary Problem Stated Complaint: Rt FLank and Abdominal Pain. Hx of Rt Renal Lithiasis last month and was seen in consult by Dr Everett in [facility]. States she had procedure on Tuesday at [facility] in [facility] by Dr Everett - lithotripsy and ureteral Stent placement. Since then she has experienced moderately severe pain in her Rt Flank and Rt abdomen. This morning she went to Dr Welsh office and her BP was lower and this combined with pain he referred her to the ER for evaluation being concerned about possible infection. Time Seen by Physician: 09:40 Mode of Arrival: Walk-In Information Source: Patient Exam Limitations: No limitations [facility] Referred to ED by: PCP Nursing and Triage Documentation Reviewed and Agree: Yes Does patient meet sepsis criteria?: No System Inflammatory Response Syndrome: Not Applicable Sepsis Protocol: For patient's 13 years and over: Temp is 96.8 and below OR 101 and greater Pulse >90 BPM Resp >20/minute Acutely Altered Mental Status Are patient's symptoms suggestive of a new infection, such as: -Pneumonia -Skin, Soft Tissue -Endocarditis -UTI -Bone, Joint Infection -Implantable Device -Acute Abdominal Infection -Wound Infection -Meningitis -Blood Stream Catheter Infection -Unknown Complaint Exam - Complaint/Exam Patient Complains of: Reports: Pain Onset/Duration: This Morning Symptoms Are: Still present Timing: Constant Initial Severity: Moderate Current Severity: Moderate Location of Pain: Reports: Right, Flank, Suprapubic, Radiating Character: Reports: Sharp, Constant pressure, Cramping Aggravating: Reports: Coughing, Urination Alleviating: Reports: None Associated Signs and Symptoms: Reports: Back pain, Dysuria Related History: Reports: Similar episode Differential Diagnoses: UTI, Other (Hx Rt Ureterolithiasis-ureter stent inserted yesterday by Urologist in [facility] /lithotripsy) Review of Systems - Review Of Systems Constitutional: Reports: Malaise, Weakness Eyes: Reports: No symptoms Ears, Nose, Mouth, Throat: Reports: No symptoms Respiratory: Reports: No symptoms Cardiac: Reports: No symptoms GI: Reports: No symptoms : Reports: Dysuria, Flank pain Skin: Reports: No symptoms Neurological: Reports: No symptoms Endocrine: Reports: No symptoms Hematologic/Lymphatic: Reports: No symptoms All Other Systems: Reviewed and Negative Past Medical History - Past Medical History Previously Healthy: Yes Endocrine: Reports: None Cardiovascular: Reports: CAD, Hypertension, A-Fib Respiratory: Reports: COPD Hematological: Reports: None Gastrointestinal: Reports: None Genitourinary: Reports: None Neuro/Psych: Reports: None Musculoskeletal: Reports: Back Pain, Joint Pain Cancer: Reports: None Last Menstrual Period: unknown - Surgical History General Surgical History: Reports: Hysterectomy, Cholecystectomy, Orthopedic - Family History Family History: Reports: Unknown - Social History Smoking Status: Former smoker Hx Substance Use: No Alcohol Screening: None Lives: Alone Physical Exam - Physical Exam Appearance: Obese Ill-appearing: None Pain Distress: Moderate Eyes: TUNG, EOMI, Conjunctiva clear ENT: Ears normal, Nose normal, Oropharynx normal Neck: Supple Respiratory: Airway patent, Breath sounds clear, Breath sounds equal, Respirations nonlabored Cardiovascular: RRR, Pulses normal, No rub, No murmur GI/: Nontender, No masses, Bowel sounds normal, No Organomegaly, Tender Musculoskeletal: Normal strength, ROM intact, No edema, No calf tenderness Skin: Warm, Dry, Normal color Neurological: Sensation intact, Motor intact, Reflexes intact, Cranial nerves intact, Alert, Oriented Psychiatric: Affect appropriate, Mood appropriate Critical Care Note - Critical Care Note Total Time (mins): 60 Course - Course Hematology/Chemistry: 06/29/18 10:13 06/29/18 10:13 Orders, Labs, Meds: Lab Review 06/29/18 06/29/18 06/29/18 09:45 10:13 10:13 WBC 9.92 RBC 4.37 Hgb 12.9 Hct 39.5 MCV 90.4 MCH 29.5 MCHC 32.7 RDW Coeff of Schuyler 13.9 Plt Count 180 Immature Gran % (Auto) 0.4 Neut % (Auto) 64.2 Lymph % (Auto) 24.3 [place] % (Auto) 8.5 Eos % (Auto) 1.8 Baso % (Auto) 0.8 Immature Gran # (Auto) 0.0 Neut # (Auto) 6.4 Lymph # (Auto) 2.4 [place] # (Auto) 0.8 Eos # (Auto) 0.2 Baso # (Auto) 0.1 Sodium 138 Potassium 3.5 Chloride 100 Carbon Dioxide 30 Anion Gap 11.5 BUN 12 Creatinine 0.80 Estimated GFR (MDRD) 72.00 BUN/Creatinine Ratio 15.00 Glucose 178 H Calcium 9.5 Total Bilirubin 1.0 AST 18 ALT 21 Alkaline Phosphatase 64 Total Protein 7.2 Albumin 3.2 L Globulin 4.0 Albumin/Globulin Ratio 0.80 Urine Color Yellow Urine Clarity Turbid Urine pH 5.5 Ur Specific [place] 1.025 Urine Protein 2+ Urine Glucose (UA) Negative Urine Ketones Negative Urine Blood 3+ Urine Nitrite Negative Urine Bilirubin Negative Urine Urobilinogen 0.2 Ur Leukocyte Esterase 1+ Urine Microscopic RBC 10-20 Urine Microscopic WBC 20-30 Ur Squamous Epith Cells Not present Urine Bacteria 3+ Orders Category Date Time Status IV [ED IV/MEDIPORT/POWERPORT] .ONCE EMERGENCY 06/29/18 11:40 Active CBC W/ AUTO DIFF Stat LAB 06/29/18 10:13 Completed CMP [COMPREHENSIVE METABOLIC PANEL] Stat LAB 06/29/18 10:13 Completed UA [URINALYSIS C & S IF INDICATED] Stat LAB 06/29/18 09:45 Completed URINE CULTURE Stat LAB 06/29/18 09:45 Received 0.9 % Sodium Chloride [Saline Flush] MEDS 06/29/18 11:40 Active 1 syr IVF PRN PRN Hydromorphone HCl [Dilaudid 0.5 mg/0.5 ml Syringe] MEDS 06/29/18 10:02 Discontinued 1 mg IM ONCE STA Levofloxacin/D5w [Levaquin] 500 mg MEDS 06/29/18 12:57 Ordered Premix 100 ml D5w 1 bag IV ONCE Sodium Chloride 0.9% [Sodium Chloride] 1,000 ml MEDS 06/29/18 11:41 Discontinued IV BOLUS Sodium Chloride 0.9% [Sodium Chloride] 1,000 ml MEDS 06/29/18 12:[address] ABD/PEL WO RENAL STONE PROT Stat RADS 06/29/18 10:00 Completed Medications Generic Name Dose Route Start Last Admin Trade Name Freq PRN Reason Stop Dose Admin Sodium Chloride 1,000 mls @ 125 mls/hr 06/29/18 12:57 Sodium Chloride IV 06/29/18 19:40 BOLUS STA Levofloxacin/Dextrose 500 mg/ 100 mls @ 100 mls/hr 06/29/18 12:57 Dextrose IV 06/29/18 13:56 ONCE STA Sodium Chloride 1 syr 06/29/18 11:40 06/29/18 12:20 Saline Flush IVF 1 syr PRN PRN Administration To flush IV Discontinued Medications Generic Name Dose Route Start Last Admin Trade Name Joseph PRN Reason Stop Dose Admin Hydromorphone HCl 1 mg 06/29/18 10:02 06/29/18 10:26 Dilaudid 0.5 Mg/0.5 Ml Syringe IM 06/29/18 10:03 1 mg ONCE STA Administration Sodium Chloride 1,000 mls @ 500 mls/hr 06/29/18 11:41 06/29/18 12:18 Sodium Chloride IV 06/29/18 13:40 100 mls/hr BOLUS STA Administration Vital Signs: Temp Pulse Resp BP Pulse Ox 06/29/18 09:15 97.8 F 90 20 112/69 94 L Departure - Departure Time of Disposition: 14:00 Disposition: TSF SHORT-TRM HOSP Discharge Problem: Ureteral perforation secondary to stent manipulation, UTI (urinary tract infection), Multiple drug allergies, Sensitive to concentration of IV drug Condition: Fair Pt referred to PMD for follow-up: Yes (Dr Munoz) IPMP verified?: No Allergies/Adverse Reactions: Allergies empagliflozin [From Jardiance] Allergy (Severe, Unverified 03/15/18 07:38) Bleeding gabapentin [From Neurontin] Allergy (Severe, Verified 09/28/15 12:43) problems breathing Pt notified to get medical alert necklace rivaroxaban [From Xarelto] Allergy (Severe, Unverified 06/14/17 08:25) vaginal bleeding and blood in urine. Severe leg cramps Patient to notify drugstore ropinirole HCl [From Requip] Allergy (Severe, Verified 09/28/15 12:43) rash,problems functioning Pt to get medical alert necklace Daqgkya-Tje-Zdq Reductase Inhibitor Allergy (Severe, Verified 09/28/15 12:43) severe leg cramps, rash venom-honey bee [bee venom (honey bee)] Allergy (Severe, Verified 09/28/15 12:43 ) swelling, throat swells, Requires epi pen. Reminded pt to carry epi pen and buy medical alert necklace lactose Allergy (Verified 09/28/15 12:43) upset stomach metformin Allergy (Unverified 01/03/18 13:32) venom-wasp [wasp venom] Allergy (Verified 09/28/15 12:43) aspirin Adverse Reaction (Verified 09/28/15 12:43) blue dye Adverse Reaction (Verified 09/28/15 12:43) cephalexin monohydrate [From Keflex] Adverse Reaction (Verified 09/28/15 12:43) clarithromycin Adverse Reaction (Verified 09/28/15 12:43) clindamycin Adverse Reaction (Verified 09/28/15 12:43) ibuprofen Adverse Reaction (Verified 09/28/15 12:43) iodine Adverse Reaction (Verified 09/28/15 12:43) latex Adverse Reaction (Verified 09/28/15 12:43) metronidazole [From Flagyl] Adverse Reaction (Verified 09/28/15 12:43) Metronidazole HCl [From Flagyl] Adverse Reaction (Verified 09/28/15 12:43) Penicillins Adverse Reaction (Verified 09/28/15 12:43) Quinolones Adverse Reaction (Verified 09/28/15 12:43) Sulfa (Sulfonamide Antibiotics) Adverse Reaction (Verified 09/28/15 12:43) tetracycline [Tetracycline] Adverse Reaction (Verified 09/28/15 12:43) contrast dye Allergy (Severe, Uncoded 06/24/17 08:19) blisters Patient to notify drugstore dye Allergy (Severe, Uncoded 06/14/17 08:25) problems breathing aspirin Adverse Reaction (Uncoded 11/06/13 11:00) blue dye Adverse Reaction (Uncoded 11/06/13 11:00) Cephalexin Monohydrate Adverse Reaction (Uncoded 11/06/13 11:00) clarithromycin Adverse Reaction (Uncoded 11/06/13 11:00) clindamycin Adverse Reaction (Uncoded 11/06/13 11:00) dyes Adverse Reaction (Uncoded 11/06/13 11:00) ibuprofen Adverse Reaction (Uncoded 11/06/13 11:00) iodine Adverse Reaction (Uncoded 11/06/13 11:00) latex Adverse Reaction (Uncoded 11/06/13 11:00) metronidazole Adverse Reaction (Uncoded 11/06/13 11:00) Penicillins Adverse Reaction (Uncoded 11/06/13 11:00) Quinolones Adverse Reaction (Uncoded 11/06/13 11:00) seafood Adverse Reaction (Uncoded 11/06/13 11:00) Sulfa (Sulfonamide Antibiotics) Adverse Reaction (Uncoded 11/06/13 11:00) Tetracycline Adverse Reaction (Uncoded 11/06/13 11:00) Home Medications: Ambulatory Orders Hydrocodone/Acetaminophen [Lortab 10-500 Tablet] 1 each PO QID PRN 09/17/14 Allopurinol 100 mg PO DAILY 05/18/18 Transfer Form Completed: Yes Disposition Discussed With: Patient, Family (patient transferred to [facility] in [facility]. Consulted with Dr [place]ina [place] [facility] and agreed to accept patient ) Additional Comments Additional Comments: UA was ordered at 0945 and left for lab to process. Advised by ER staff was overlooked X 2 and not sent to lab until approx 10 :45 AM Additional Information: [address] scan once results obtained and reviewed with Dr Munoz Requested to contact Dr Ordonez Urologist Contacted Dr Ordonez and spoke with his RN Betsey Melendez. Stated physician advised he was aware of the perforated ureter and reason of leaving stent in place Agreed to accept Patient in transfer an informed to contact hospitalist at [facility] in [place], [place] Completed call at approximately 12 noon. Accepted transfer. 1300-awaiting call back from staff assistant to speak to staff in ER [id number] paramedics arrived and preparing to transfer patient. patient having increased pain, Re-medicated with Dilaudid prior to discharge. Pain controlled
[2018-06-29] MEDS ORDERED: DILAUDID 0.5 MG/0.5 ML SYRINGE IM STA (10:02)
--- NOTE | 2018-06-29 11:23 | CT ---
EXAM: CT of the abdomen pelvis without contrast History: Right flank pain, history of appendectomy. Comparison: CT abdomen pelvis 05/29/2018 Technique: Multiplanar CT images through the abdomen pelvis were obtained without the administration of IV contrast Findings: Subsegmental atelectasis seen at the lung bases. No acute osseous abnormalities. Status post cholecystectomy. The liver is fatty. Tiny hiatal hernia. No focal liver or splenic les ions. Atherosclerotic vascular calcifications. No peripancreatic inflammation. Adrenal glands are unremarkable. Interval placement of right ureteral stent. Scattered foci of air are seen within the soft tissues adjacent to the stent, consistent with perforation. No drainable fluid collections are identified to suggest abscess. There is mild right hydronephrosis. The previously described calculu s within the right renal pelvis is no longer seen. There are persistent calculi within the inferior pole of the right kidney measuring up to 9 mm. No left renal calculi. 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 The no dilated loops of bowel. No bladder wall thickening. Uterus is not seen. No perirectal inflammation. Impression: 1. Scattered foci of air seen within the soft tissues adjacent to the right ureteral stent consisten t with perforation. No abscess is identified. 2. The previously described right renal pelvis calcification has resolved. 3. Mild right hydronephrosis and right nephrolithiasis. 4. Hepatic steatosis
[2018-06-29] MEDS ORDERED: SODIUM CHLORIDE 1,000 ML IV STA (11:41)
[2018-06-29] MEDS ORDERED: LEVAQUIN 500 MG in PREMIX 100 ML D5W 1 BAG IV STA (12:57)
[2018-06-29] MEDS ORDERED: LEVAQUIN 100 ML IV ONE (13:16)
[2018-06-29] MEDS: SODIUM CHLORIDE 1,000 ML IV STA ×2 (13:25→13:28)
[2018-06-29] MEDS ORDERED: ZOFRAN 4 MG/2 ML IVP STA (13:43)
[2018-06-29] MEDS ORDERED: BENADRYL IVP STA (13:44)
[2018-06-29] MEDS ORDERED: DECADRON 4 MG/ML SDV IVP STA (13:45)
[2018-06-29] MEDS ORDERED: DILAUDID 2 MG/ML SDV IVP STA (14:46)
[2018-06-29] MEDS ORDERED: DILAUDID 2 MG/ML SYRINGE ONE (15:01)
== END 2018-06-29 14:45 | disposition short-term general hospital (02) ==
LOC: ED 09:14
DX: N39.0 Urinary tract infection, site not specified (principal); N99.71 Accidental puncture and laceration of a genitourinary system organ or structure during a genitourinary system procedure; T83.84XA Pain due to genitourinary prosthetic devices, implants and grafts, initial encounter; G89.18 Other acute postprocedural pain; Y73.3 Surgical instruments, materials and gastroenterology and urology devices (including sutures) associated with adverse incidents; T50.905A Adverse effect of unspecified drugs, medicaments and biological substances, initial encounter; I10 Essential (primary) hypertension; I25.10 Atherosclerotic heart disease of native coronary artery without angina pectoris
CPT/HCPCS: 36415; 74176; 80053; 81001; 85025; 87086; 96361; 96374; 96375; 99285

== ENCOUNTER 2018-06-29 15:02 | Outpatient (CLI) ==
[2018-06-29 09:26] VITALS: BMI 46.5
== END 2018-06-29 16:24 | disposition short-term general hospital (02) ==
LOC: AMBL 15:02
PROVIDERS: ATTEND Emergency Medicine
DX: N28.89 Other specified disorders of kidney and ureter (principal)

== ENCOUNTER 2018-08-29 10:00 | Outpatient (RCR) ==
--- NOTE | 2018-08-17 13:26 | RS.OPPTEV2 ---
Date of Note: 08/17/18 Visit #: 1 Number of visits approved by Insurance: pending approval Date of Evaluation: 08/17/18 Payer Source: Medicaid Date of Onset/Injury/Change in Status: 07/31/18 Surgery Performed?: No Treatment Diagnosis: Left shoulder stiffness History of Condition/Mechanism of Injury:: Ms. Fernandes states her shoulder pain began a few weeks ago, without injury. Prior Level of Function.....Patient was independent with: ADL's, Self Care, Work /Vocation, Caregiving, Ambulation/Mobility, Community Integration/Access Functional Limitations: Sleep, Self Care, ADL's, Reaching, Pushing, Pulling, Lifting, Carrying Current Subjective/complaints:: Ms. Fernandes reports left shoulder pain at rest and with movement. States the shoulder feels swollen at times. Reports having to rely on the right UE for most selfcare and ADL's due to pain with using the left UE. Reports being unable to reach, lift, or carry anything in the left UE, due to pain. States she is unable to sleep on the left shoulder. She has had no tests on the left shoulder and was not given any new medication. She has tried ice on the shoulder. Treatment Side (optional): Left *Precautions: LATEX ALLERGY Medical History Medical History: Hypertension, COPD, Diabetes, Arthritis Surgical History Comments:: Left TKA 2007, revision 2009. Right TKA 11/12/16 Smoking Status: Never smoker Diagnostic Testing/Imaging:: none Hx Home Medications: Hydrocodone, HCTZ,Spironolactone,digoxin,ranitidine,sotalol , Protonix, Januvia,Allopurinol,Lipitor, Diphenhydramine Patient's Goals: Her goal is to get relief of left shoulder pain. Pain Assessment - Pain Description Pain Location: left shoulder Pain Description: Sharp, Aching Current Pain Intensity: 7/10 Worst Pain Intensity: 10/10 Functional Outcome Measure UE Functional Index: 37 (37/80=53.75% impairment) - G Codes & Severity Modifier G Codes & Modifier: NA Source of G Code score: NA Observation - Observation Posture: Forward Head, Rounded Shoulders Handedness: Right Shoulder ROM: Right WFL's Shoulder Muscle Strength: Right WFL's - Left Shoulder ROM Left Shoulder Flexion: 118 (degrees AROM) Left Shoulder Extension: 45 (degrees AROM) Left Shoulder Abduction: 90 (degrees AROM) Left Shoulder Internal Rotation: 70 (degrees AROM) Left Shoulder External Rotation: 55 (degrees AROM) Comments: All directions with AROM limited by pain. PROM of left shoulder into flexion is painful at 95-100 degrees, abduction painful at 90-95 degrees. Both demonstrate soft endfeel. - Left Shoulder Strength Left Shoulder Flexion: 4 Good Left Shoulder Extension: 4+ Good + Left Shoulder Abduction: 4 Good Left Shoulder Adduction: 5 Normal Left Shoulder External Rotation: 4 Good Left Shoulder Internal Rotation: 4 Good - Special Tests Shoulder Empty Can (Supraspinatus) Test: Negative Right, Positive Left Shoulder Speed's Sign Test: Negative Right, Positive Left Shoulder Drop Arm Test: Negative Left, Negative Right Shoulder Pierson-Nicholas Impingement Test: Negative Right, Positive Left Park Landscape Architect Strength Left Hand Park Landscape Architect Strength: 5 lbs., reports shoulder pain Right Hand Park Landscape Architect Strength: 35 lbs. Dynamometer Testing Position: 2nd Position Palpation Comments:: Tenderness reported over the insertion of the supraspinatus tendon and over the long head of the biceps tendon at the anterior aspect of the GH joint. Reports slight tenderness over the muscle belly of the biceps. Sensation - Sensation Right Upper Extremity: Intact/Normal Left Upper Extremity: Intact/Normal - Treatment Modality: Ultrasound Parameters/Method Applied: 9 mins continuous @ 1.5 w/cm2 , then 4 mins pulsed 20 % at 1.5 w/cm2 over left shoulder joint, with focus on the anterior and lateral aspect of the joint. Patient Position: Sitting Interventions - Exercise/Activities/Manual Therapy Exercises/Activities: Patient instructed in pendulum exercise and discussed avoid AROM of the left shoulder that causes pain, so not to keep the soft tissues aggravated. Manual Therapy: NA HOME EXERCISE PROGRAM: Pendulum - Charges Timed Code Treatment Minutes: 13 mins Total Treatment Time: 42 mins Procedures billed for this date of service:: PAOLA Gonzalez, EVALUATION COMPLEXITY LEVEL EVALUATION COMPLEXITY LEVEL: HISTORY: Medium (Diabetes, COPD), EXAM OF BODY SYSTEMS: Low, CLINICAL PRESENTATION: Low, CLINICAL DECISION MAKING: Low Assessment Assessment: Ms. Fernandes presents to therapy with a diagnosis of left shoulder stiffness. She reports pain at rest and with movement. Demonstrates limited PROM and AROM due to pain. Demonstrates positive Special Tests of Empty Can, Speed's Test, and Impingement Test on the right UE. She demonstrates symptoms consistent with involvement of Long head of biceps tendon, Supraspinatus tendon , and Subacromial bursa. She demonstrates potential to benefit from modalities and exercises to reduce her pain and regain full functional AROM. Patient Education: Education of diagnosis, Body/Joint mechanics, Home Exercise Program, Home Safety, Activity Modification, Education of Plan of Care Rehab Potential: Good Short Term Goals Goal #1: Patient independent and compliant with HEP. Goal to be met by: 08/31/18 Goal #2: PROM of left shoulder WFL's with minimal pain. Goal to be met by: 08/31/18 Goal #3: Tenderness at the left shoulder joint decreased to minimal. Goal to be met by: 08/31/18 Goal #4: Pt to report no left shoulder pain at rest. Goal to be met by: 08/31/18 Custodial Goals Goal #1: Pt knows HEP and to continue exercises to maintain functional level at D/C. Goal to be met by: 09/21/18 Goal #2: Score on UE functional scale improved to 60/80. Goal to be met by: 09/21/18 Goal #3: Pt able to use LUE for selfcare and ADL's with minimal discomfort. Goal to be met by: 09/21/18 Goal #4: Pt able to sleep without interruption from left shoulder pain. Goal to be met by: 09/21/18 Plan - Treatment to be Provided Procedures: Therapeutic Exercises, Therapeutic Activity, Manual Therapy, Patient Education Modalities: Electrical Stimulation, Ultrasound/Phonophoresis, Cryotherapy, Hot Packs - Treatment Plan Frequency: 3 X week Duration: 4 weeks Dates of Project Surveyor Goals: 09/21/18 Expiration date of current Insurance Approval:: pending authorization - Treatment Code (1) Shoulder stiffness Qualifiers: Laterality: left Qualified Code(s): M25.612 - Stiffness of left shoulder, not elsewhere classified (2) Shoulder pain Code(s): M25.519 - PAIN IN UNSPECIFIED SHOULDER Qualifiers: Chronicity: acute Laterality: left Qualified Code(s): M25.512 - Pain in left shoulder
--- NOTE | 2018-08-23 11:20 | RS.OPPTDN ---
Subjective Date of Note: 08/23/18 Visit #: 2 Number of visits approved by Insurance: Discontinue at visit 7: Mayi pending approval Date of Evaluation: 08/17/18 Payer Source: Medicaid Treatment Diagnosis: Left shoulder stiffness Current Subjective/complaints:: Patient says she had relief after u/s at eval, but soreness returned. She is eager to have treatment today to experience more pain relief. *Precautions: LATEX ALLERGY Pain Assessment - Pain Description Pain Location: L anterior shoulder - Treatment Modality: Ultrasound Parameters/Method Applied: continuous @ 1.5 w/cm2 x 8 mins, then pulsed @ 20% x 4 mins to the L anterior/mid deltoid Patient Position: Sitting - Heat/Cryotherapy Treatment: Hot Pack (20 mins to the L shoulder and upper arm in sitting.) Interventions - Exercise/Activities/Manual Therapy Exercises/Activities: PROM for the L shoulder all motions in sitting. Patient sits for shoulder shrugs and scap adduction. Ended with shoulder pulleys for flexion x 12 reps with static stretches for flexion. Began education of diagnosis, anatomy, and HEP. Also, recommended ice later today if her symptoms increase related therex today. Total minutes of Exercise: 22 Manual Therapy: NA HOME EXERCISE PROGRAM: Pendulum - Charges Timed Code Treatment Minutes: 34 Total Treatment Time: 49 Procedures billed for this date of service:: hp, u/s,ex Assessment: Patient juan jose all PROM well with soreness experienced at end ranges. Passive flexion to ~125 degrees, ABD to ~95 degrees. No presence of popping with any motion felt. She is taking Caney for her back anyway, but no additional pain meds specifically targeting the shoulder. She is able to juan jose self stretching during pulleys. Patient Education: Education of diagnosis, Body/Joint mechanics, Home Exercise Program, Education of Plan of Care Patient demonstrates compliance with HEP?: Yes Short Term Goals Goal #1: Patient independent and compliant with HEP. Goal to be met by: 08/31/18 Progress towards Goal:: Progressing Goal #2: PROM of left shoulder WFL's with minimal pain. Goal to be met by: 08/31/18 Progress towards Goal:: Progressing Goal #3: Tenderness at the left shoulder joint decreased to minimal. Goal to be met by: 08/31/18 Goal #4: Pt to report no left shoulder pain at rest. Goal to be met by: 08/31/18 Shelter Goals Goal #1: Pt knows HEP and to continue exercises to maintain functional level at D/C. Goal to be met by: 09/21/18 Goal #2: Score on UE functional scale improved to 60/80. Goal to be met by: 09/21/18 Goal #3: Pt able to use LUE for selfcare and ADL's with minimal discomfort. Goal to be met by: 09/21/18 Goal #4: Pt able to sleep without interruption from left shoulder pain. Goal to be met by: 09/21/18 Plan Dates of Shelter Goals: 09/21/18 Expiration date of current Insurance Approval:: 09/21/18 PLAN: Patient to continue for modalities and therex to the L shoulder to improve pain and mobility progressing to strengthening.
--- NOTE | 2018-08-24 11:33 | RS.OPPTDN ---
Subjective Date of Note: 08/24/18 Visit #: 3 Number of visits approved by Insurance: Mayi, no approval. Assess at 7th visit Date of Evaluation: 08/17/18 Payer Source: Medicaid Treatment Diagnosis: Left shoulder stiffness Current Subjective/complaints:: Patient says she is achy today generally throughout the body (related to weather). Patient says that treatment is helping and has more mobility to the shoulder. She says it remains difficult for her to bishnu/doff bra. She reports her pain is surely due to arthritis and will have to deal with it off and on. *Precautions: LATEX ALLERGY - Treatment Modality: Ultrasound Parameters/Method Applied: continuous @ 1.5 w/cm2 x 12 mins to the L ant shoulder, UT, and post shoulder joint. Patient Position: Sitting Interventions - Exercise/Activities/Manual Therapy Exercises/Activities: PROM for the L shoulder all motions in sitting. Patient sits for shoulder shrugs and scap adduction. Began manual isometrics for all shoulder motions x 5. Ended with shoulder pulleys for flexion x 12 reps with static stretches for flexion. Continued with education of diagnosis, anatomy, and HEP. Total minutes of Exercise: 22 Manual Therapy: NA HOME EXERCISE PROGRAM: Pendulum - Charges Timed Code Treatment Minutes: 34 Total Treatment Time: 49 Procedures billed for this date of service:: hp, u/s, ex Assessment: Patient demo flexion to WFL passively today, but limited ABD and experiences more pain with ABD than flexion. She provides little resistance with isometric shoulder flexion compared to all other motions. Patient able to attain full shoulder flexion with use of pulleys. No popping felt. Pain reduced with treatment today. Patient Education: Education of diagnosis, Body/Joint mechanics, Home Exercise Program Patient demonstrates compliance with HEP?: Yes Short Term Goals Goal #1: Patient independent and compliant with HEP. Goal to be met by: 08/31/18 Progress towards Goal:: Progressing Goal #2: PROM of left shoulder WFL's with minimal pain. Goal to be met by: 08/31/18 Progress towards Goal:: Progressing Goal #3: Tenderness at the left shoulder joint decreased to minimal. Goal to be met by: 08/31/18 Goal #4: Pt to report no left shoulder pain at rest. Goal to be met by: 08/31/18 Chcf Goals Goal #1: Pt knows HEP and to continue exercises to maintain functional level at D/C. Goal to be met by: 09/21/18 Goal #2: Score on UE functional scale improved to 60/80. Goal to be met by: 09/21/18 Goal #3: Pt able to use LUE for selfcare and ADL's with minimal discomfort. Goal to be met by: 09/21/18 Goal #4: Pt able to sleep without interruption from left shoulder pain. Goal to be met by: 09/21/18 Plan Dates of Railcar Carpenter Goals: 09/21/18 Expiration date of current Insurance Approval:: 09/21/18 PLAN: Continue BIW x 2 more weeks.
--- NOTE | 2018-08-29 11:23 | RS.OPPTDN ---
Subjective Date of Note: 08/29/18 Visit #: 4 Number of visits approved by Insurance: 7, Approved through [employer] Date of Evaluation: 08/17/18 Payer Source: Medicaid Treatment Diagnosis: Left shoulder stiffness Current Subjective/complaints:: Patient says her mobility is improving, but still has weakness and pain/tenderness at the L posterior shoulder. She says she is working on HEP often and can tell she is getting better at it. *Precautions: LATEX ALLERGY - Treatment Modality: Ultrasound Parameters/Method Applied: continuous @ 1.5 w/cm2 x 12 mins primarily to the L posterior shouder joint, but also working into the ant/medial deltoid. Patient Position: Sitting - Heat/Cryotherapy Treatment: Hot Pack (over the L shoulder x 20 mins in sitting) Interventions - Exercise/Activities/Manual Therapy Exercises/Activities: PROM for the L shoulder all motions in sitting. She is able to juan jose all directions to WNL now. Patient sits for shoulder shrugs and scap adduction. Continued with manual isometrics all directions x6. Ended with 1# wand for bilateral shoulder flexion and red tband scap retraction x 10. Total minutes of Exercise: 26 Manual Therapy: NA HOME EXERCISE PROGRAM: Pendulum - Charges Timed Code Treatment Minutes: 38 Total Treatment Time: 58 Procedures billed for this date of service:: hp, u/s, ex2 Assessment: Patient demo increased PROM to WNL all directions now with only mild to moderate pain at terminal ranges. She remains with difficulty actively limiting her to WFL for flex/ABD and weakness/lack of prolonged static functional uses. She requires assistance to achieve terminal ranges and more normal AROM regarding rotation to resume daily house chores and dressing/self grooming tasks. Patient Education: Education of diagnosis, Home Exercise Program, Education of Plan of Care Patient demonstrates compliance with HEP?: Yes Short Term Goals Goal #1: Patient independent and compliant with HEP. Goal to be met by: 08/31/18 Progress towards Goal:: Progressing Goal #2: PROM of left shoulder WFL's with minimal pain. Goal to be met by: 08/31/18 Progress towards Goal:: Partially Met Comments:: FLEX/ABD Goal #3: Tenderness at the left shoulder joint decreased to minimal. Goal to be met by: 08/31/18 Progress towards Goal:: No Change Comments:: Remains tender at posterior L shoulder Goal #4: Pt to report no left shoulder pain at rest. Goal to be met by: 08/31/18 Progress towards Goal:: Progressing Studio Model Goals Goal #1: Pt knows HEP and to continue exercises to maintain functional level at D/C. Goal to be met by: 09/21/18 Goal #2: Score on UE functional scale improved to 60/80. Goal to be met by: 09/21/18 Goal #3: Pt able to use LUE for selfcare and ADL's with minimal discomfort. Goal to be met by: 09/21/18 Goal #4: Pt able to sleep without interruption from left shoulder pain. Goal to be met by: 09/21/18 Plan Dates of Studio Model Goals: 09/21/18 Expiration date of current Insurance Approval:: 09/21/18 PLAN: Patient to continue for 3 more visits to progress therex and u/s to L shoulder to ease pain/tenderness and improve strength and obtain increased AROM.
== END 2018-08-30 23:59 ==
PROVIDERS: ATTEND Nurse Practitioner Family
DX: M25.612 Stiffness of left shoulder, not elsewhere classified (principal); M25.512 Pain in left shoulder

== ENCOUNTER 2018-10-27 09:27 | Outpatient (CLI) | END 2018-10-27 09:28 | disposition home or self-care (01) | LOC: LAB 09:27 | PROVIDERS: ATTEND Nurse Practitioner Family | DX: Z51.81 Encounter for therapeutic drug level monitoring (principal) | CPT/HCPCS: 36415; 80162 ==

== ENCOUNTER → 2018-11-01 | Outpatient (POV) | LOC: FCC-LAB 13:24 | PROVIDERS: ATTEND Family Medicine | DX: E11.9 Type 2 diabetes mellitus without complications (principal) | CPT/HCPCS: 36415; 83037 ==

== ENCOUNTER 2018-11-28 08:00 | Outpatient (CLI) ==
--- NOTE | 2018-11-28 12:41 | MRI ---
EXAM: MRI lumbar spine without IV contrast. DATE: 28 November 2018. HISTORY: Lumbar radiculopathy, pain. Numbness primarily in the right foot. TECHNIQUE: Sagittal and axial T1W and T2W sequences of the lumbar spine along with sagittal IR and c oronal T2W sequences were obtained using 1.5 Lina magnet. No IV contrast. COMPARISON: LS spine series 11/08/2016. CT abdomen/pelvis 29 June 2018. FINDINGS: There are five [id number] lumbar vertebra. No lumbar scoliosis is evident. A 2.5 mm anterolisthesis of L4 relative to L5 is due to facet disease. No other subluxation, acute fracture, osseous malignancy, or pars interarticularis defect is demonstrated. Lumbar vertebra are normal in height. Small osteophytes are observed at several lumbar levels. Large right anterolateral osteophy valerie is seen at T12-L1. Bone marrow signal is overall normal, except for patchy areas of fatty infilt ration. Minor disc space narrowing is detected at L4-5. Remaining intervertebral discs are normal i n height. Small, chronic Schmorl's nodes are seen at T10 and T11. Spinous process arthritis is susp ected L2-3, L3-4 and L4-5. No acute sacral fracture or stress reaction is identified. SI joints are unremarkable. Conus medullaris terminates at L1. Visible spinal cord reveals no syrinx, cord edema , myelomalacia, or neoplasm. No retroperitoneal lymphadenopathy, paraspinal mass, or aortic aneurysm is detected. Atherosclerotic plaques are scattered within the aortic wall. Psoas muscles are normal. There is minor bilateral p osterior paraspinal muscle atrophy. Right lobe liver measures greater than 16 cm in length, without distinct focal mass. Previous abdominal CT demonstrates moderate hepatic steatosis. Visible portion s of the CBD, pancreas, spleen, adrenal glands, and left kidney reveal no definitive abnormality. Ar eas of cortical thinning and right kidney likely represent scarring. The nephroliths identified on t he prior abdominal CT scan are not clearly visible on the current MRI. Segmental analysis: T11-12: Sagittal images reveal no disc protrusion, central stenosis or foraminal stenosis. T12-L1: Normal. L1-2: Normal. L2-3: Minor posterior to left foraminal disc bulge causes slight left inferior foraminal encroachmen t. No central canal stenosis. L3-4: Minor posterior disc bulge, minor facet arthropathy and abundant dorsal epidural fat cause mil d central canal stenosis and minor bilateral inferior foraminal encroachment. L4-5: Minor anterolisthesis of L4, pseudodisc bulge, moderate facet arthropathy, marked left facet a rthropathy, and minor ligamentum flavum hypertrophy cause mild/moderate central canal stenosis, sligh t right foraminal encroachment (posteriorly), and mild left foraminal stenosis. L5-S1: Normal, except for mild bilateral facet arthropathy IMPRESSIONS: 1. Lumbar spine mild spondylosis, multilevel facet arthropathy ( especially L4-5 and minor/mild DDD. 2. Mild L3-4 and mild/moderate L4-5 central canal stenoses. 3. Multilevel lumbar foraminal stenoses (minor/mild). 4. Mild bone marrow fatty infiltration appears benign. 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 6. Mild aortic and iliac artery atherosclerosis. 7. Mild hepatomegaly due to hepatic steatosis. 9. 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
== END 2018-11-28 08:01 | disposition home or self-care (01) ==
LOC: RAD 08:00
PROVIDERS: ATTEND Psychiatry & Neurology Neurology
DX: M54.16 Radiculopathy, lumbar region (principal); M54.5 Low back pain; G89.29 Other chronic pain

== ENCOUNTER 2019-01-04 08:57 | Outpatient (CLI) ==
--- NOTE | 2019-01-04 14:23 | DI ---
EXAM: KUB HISTORY: Kidney stones. COMPARISON: CT abdomen pelvis 05/29/2018 FINDINGS: There are phleboliths in the pelvis. There are surgical clips in right upper quadrant. Th ere is no stone overlying the left kidney. There is a questionable rounded density overlying the rig ht kidney. There is a nonobstructive bowel gas pattern. IMPRESSION: 1. Questionable nonobstructing right renal stone. 2. Nonobstructive, nonspecific bowel gas pattern.
== END 2019-01-04 08:58 | disposition home or self-care (01) ==
LOC: RAD 08:57
PROVIDERS: ATTEND Urology
DX: N20.0 Calculus of kidney (principal)

== ENCOUNTER 2019-02-01 08:58 | Outpatient (CLI) | END 2019-02-01 08:59 | disposition home or self-care (01) | LOC: RHC-LAB 08:58 → LAB 08:59 | PROVIDERS: ATTEND Nurse Practitioner Family | DX: E11.9 Type 2 diabetes mellitus without complications (principal); I10 Essential (primary) hypertension; Z51.81 Encounter for therapeutic drug level monitoring; Z79.899 Other long term (current) drug therapy | CPT/HCPCS: 36415; 80053; 80162; 83036; 85025 ==

== ENCOUNTER 2019-02-20 13:34 | Outpatient (RCR) ==
--- NOTE | 2019-02-22 08:30 | RS.OPPTEV2 ---
Date of Note: 02/20/19 Visit #: 1 Number of visits approved by Insurance: pending Date of Evaluation: 02/20/19 Payer Source: Medicaid Surgery Performed?: No Treatment Diagnosis: lumbar spondyosis, low back pain with radiculopathy, sensory ataxia, History of Condition/Mechanism of Injury:: pt has had long standing history of LBP. She had no definitive injury. 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 States she is having increased symptoms in B feet R worse than L. Has next injection on Tuesday02/26/19. Treatment Side (optional): N/A *Precautions: LATEX ALLERGY Medical History Medical History: Hypertension, COPD, Diabetes, Arthritis Surgical History: Knee Replacement Surgical History Comments:: Left TKA 2007, revision 2009. Right TKA 11/12/16 Smoking Status: Never smoker Diagnostic Testing/Imaging:: MRI lumbar spine: Lumbar spine mild sphodylosis, multilevel facet arthropathy, DDD, mild L3-L4 and mod L4-L5 central canal stenosis, multilevel lumbar foraminal stenosis, Hx Home Medications: Hydrocodone, HCTZ,Spironolactone,digoxin,ranitidine,sotalol , Protonix, Januvia,Allopurinol,Lipitor, Diphenhydramine, Vitamin D Patient's Goals: decrease low back and leg pain Pain Assessment - Pain Description Pain Location: low back pain Pain Description: Radiating, Sharp, Aching Current Pain Intensity: 8/10 Other Comments regarding Pain:: pain radiates into BLE R worse than L radiates to feet. Functional Outcome Measure UE Functional Index: 0 Oswestry LBP: 27 - G Codes & Severity Modifier G Codes & Modifier: n/a Source of G Code score: n/a Observation - Observation Posture: Forward Head, Rounded Shoulders, Increased Thoracic Kyphosis, Decreased Lumbar Lordosis Handedness: Right Gait - Gait Pattern General Gait Pattern Observation: Antalgic Gait, Decrease Stride Lngth (R), Decrease Stride Lngth (L), Lateral Trunk Lean Gait Comments: pt amb without AD with antalgic gait with decreased stance time on RLE, with increased lat sway, pt with slight ataxic gait as well possibly due to decreased proprioception. General Range of Motion: BUE WFL's. BLE WFL's Muscle Strength: BUE 5/5. RLE hip flex 4/5, knee flex/ext 4+/5, ankle DF/PF 4/ 5. LLE hip flex 4+/5,knee flex/ext 4+/5, ankle DF/PF 4+/5 - ROM Lumbar Flexion: Hand reach to Mid-Thighs Sidebending to Left: Reach to Mid-thigh Sidebending to Right: Reach to Mid-thigh Lumbar Spine ROM Limitations: Soft Tissue Tightness, Muscle Weakness, Pain Comments: pt c/o pain with all planes of lumbar ROM, especially with ext. - Strength Trunk Extension: 3- Fair- Trunk Flexion: 4- Good- Trunk Lateral Flexion: 4- Good- - Special Tests ROSELIA Test: Negative Left, Negative Right SLR Test: Negative Left, Positive Right SI Joint Compression: Positive Palpation Palpation Findings: Tenderness, Muscle Guarding Comments:: pt with tenderness to palpation to R lumbar, also with muscle guarding to lumbar/sacral area. Sensation - Sensation Right Upper Extremity: Intact/Normal Left Upper Extremity: Intact/Normal Right Lower Extremity: Impaired Left Lower Extremity: Impaired Comments: n/t and burning in B feet, pt also with radicular pain into RLE. pt also has decreased propriocepcion B feet. Balance - Sitting Balance Static Sitting Balance: Normal Dynamic Sitting Balance: Normal - Standing Balance Static Standing Balance: Normal Dynamic Standing Balance: Normal - Treatment Modality: Electrical Stim Unattended Parameters/Method Applied: IFC x 20 mins at 12ma Treatment Area: R lumbar sacral area Patient Position: Left Sidelying - Heat/Cryotherapy Treatment: Cryotherapy Comments:: lumbar Interventions - Exercise/Activities/Manual Therapy Exercises/Activities: pt performed gentle hamstring stretch, piriformis stretch , as well as pelvic tilt. Manual Therapy: NA HOME EXERCISE PROGRAM: pt given written HEP including pelvic tilt, hamstring stretch, piriformis stretch. - Charges Timed Code Treatment Minutes: 41 Total Treatment Time: 58 Procedures billed for this date of service:: eval med, estim unattended, CP EVALUATION COMPLEXITY LEVEL EVALUATION COMPLEXITY LEVEL: HISTORY: Medium, EXAM OF BODY SYSTEMS: Medium, CLINICAL PRESENTATION: Medium, CLINICAL DECISION MAKING: Medium Assessment Assessment: pt presents with low back pain radiating into BLE R worse than L. pt also with muscle guarding, tightness, as well as antalgic gait. pt presents with decreased proprioception B feet. pt also has decreased lumbar ROM and strength. Patient Education: Home Exercise Program, Education of Plan of Care Rehab Potential: Good Short Term Goals Goal #1: pt independent with initial HEP Goal to be met by: 03/09/19 Goal #2: pt rate pain < 7/10 Goal to be met by: 03/09/19 Goal #3: pt with improved flexibility hamstrings Goal to be met by: 03/09/19 Goal #4: Improve Lumbar ROM Goal to be met by: 03/09/19 Limited Radiology Technician Goals Goal #1: Improve oswestry score <22 Goal to be met by: 03/23/19 Goal #2: pt report increased ability to perform normal household duties w less pain Goal to be met by: 03/23/19 Goal #3: pt with no reports of radicular pain Goal to be met by: 03/23/19 Goal #4: pt rate pain < 6/10 Goal to be met by: 03/23/19 Plan - Treatment to be Provided Procedures: Therapeutic Exercises, Therapeutic Activity, Manual Therapy, Massage , Patient Education Modalities: Electrical Stimulation, Ultrasound/Phonophoresis, Cryotherapy, Hot Packs - Treatment Plan Frequency: 2 X week Duration: 4 weeks Dates of Longterm Goals: 03/23/19 Expiration date of current Insurance Approval:: pending - Treatment Code (1) Lumbar back pain with radiculopathy affecting lower extremity Code(s): M54.16 - RADICULOPATHY, LUMBAR REGION (2) Sensory ataxia Code(s): R27.8 - OTHER LACK OF COORDINATION (3) Diabetic polyneuropathy Code(s): E11.42 - TYPE 2 DIABETES MELLITUS WITH DIABETIC POLYNEUROPATHY Qualifiers: Diabetes mellitus type: type 2 Qualified Code(s): E11.42 - Type 2 diabetes mellitus with diabetic polyneuropathy (4) Muscle tightness Code(s): M62.89 - OTHER SPECIFIED DISORDERS OF MUSCLE (5) Lumbar spondylosis Code(s): M47.816 - SPONDYLOSIS W/O MYELOPATHY OR RADICULOPATHY, LUMBAR REGION
== END 2019-02-27 23:59 ==
PROVIDERS: ATTEND Psychiatry & Neurology Neurology
DX: M47.816 Spondylosis without myelopathy or radiculopathy, lumbar region (principal); R27.8 Other lack of coordination; E11.42 Type 2 diabetes mellitus with diabetic polyneuropathy

== ENCOUNTER 2019-03-13 10:18 | Outpatient (CLI) | END 2019-03-13 10:19 | disposition home or self-care (01) | LOC: RHC-LAB 10:18 → FCC-LAB 10:19 | PROVIDERS: ATTEND Nurse Practitioner Family | DX: Z01.818 Encounter for other preprocedural examination (principal); I48.91 Unspecified atrial fibrillation; E11.9 Type 2 diabetes mellitus without complications; E78.5 Hyperlipidemia, unspecified | CPT/HCPCS: 36415; 80053; 80061; 83874; 93005; 93010 ==

== ENCOUNTER 2019-03-21 10:00 | Outpatient (RCR) ==
--- NOTE | 2019-02-28 16:26 | RS.OPPTDN ---
Subjective Date of Note: 02/28/19 Visit #: 2 Number of visits approved by Insurance: pending, requested 8 Date of Evaluation: 02/20/19 Payer Source: Medicaid Treatment Diagnosis: lumbar spondyosis, low back pain with radiculopathy, sensory ataxia, Current Subjective/complaints:: Patient says she has increased soreness today possibly related to the weather and she received an injection Tuesday. Reports she had some relief with the injection, but feels swollen in her back. *Precautions: LATEX ALLERGY - Treatment Modality: Electrical Stim Unattended Parameters/Method Applied: IFC @ 13 ma x 20 mins to the lumbar paraspinals and along waistline Patient Position: Supine - Heat/Cryotherapy Treatment: Hot Pack, Cryotherapy (x 15 mins across the low back in R sidelying after therex) Comments:: mid to low back with estim Interventions - Exercise/Activities/Manual Therapy Exercises/Activities: Patient receives passive stretching bilaterally of SKTC, Piriformis, Figure 4, Lower trunk rotation, and HS x 4. Hooklying: Lower pelvic glides x 5, ball squeezes for isometric hip add, isometric hip flexion and abd x 10. Patient ed on therex performed and its benefits as well as using heat/ice at home for pain control. Total minutes of Exercise: 19 Manual Therapy: NA HOME EXERCISE PROGRAM: pt given written HEP including pelvic tilt, hamstring stretch, piriformis stretch. - Charges Timed Code Treatment Minutes: 19 Total Treatment Time: 54 Procedures billed for this date of service:: hp, estim (un), ex Assessment: Patient presents with mild LBP across waistline equally. Some pain relief noted with receiving recent injection and PT treatment. She does demo mm tightness throughout all stretches today, but should improve with treatment. She appears attentive to education and recommended proper body mechanics and posture at home with chores and with babysitting. Patient Education: Education of diagnosis, Body/Joint mechanics, Home Exercise Program, Education of Plan of Care Short Term Goals Goal #1: pt independent with initial HEP Goal to be met by: 03/09/19 Goal #2: pt rate pain < 7/10 Goal to be met by: 03/09/19 Progress towards Goal:: Progressing Goal #3: pt with improved flexibility hamstrings Goal to be met by: 03/09/19 Goal #4: Improve Lumbar ROM Goal to be met by: 03/09/19 Sheet Metal Contractor Goals Goal #1: Improve oswestry score <22 Goal to be met by: 03/23/19 Goal #2: pt report increased ability to perform normal household duties w less pain Goal to be met by: 03/23/19 Goal #3: pt with no reports of radicular pain Goal to be met by: 03/23/19 Goal #4: pt rate pain < 6/10 Goal to be met by: 03/23/19 Plan Dates of Sheet Metal Contractor Goals: 03/23/19 Expiration date of current Insurance Approval:: 03/23/19 PLAN: Patient to continue with modalities to reduce pain and continued therex to improve inflexibility and strength.
--- NOTE | 2019-03-02 11:33 | RS.OPPTDN ---
Subjective Date of Note: 03/02/19 Visit #: 3 Number of visits approved by Insurance: 8, pending Date of Evaluation: 02/20/19 Payer Source: Medicaid Treatment Diagnosis: lumbar spondyosis, low back pain with radiculopathy, sensory ataxia, Current Subjective/complaints:: Patient says she is a little sore today due to the weather (damp), but felt relief from treatment at her last session. She says pain seems to be more on the R Low back today near the spine. *Precautions: LATEX ALLERGY - Treatment Modality: Electrical Stim Unattended Parameters/Method Applied: hivolt 4 large pads controlled vertically @ 355 on the R and 315 on the L x 20 mins Treatment Area: lumbar paraspinals and superior gluts Patient Position: Supine - Heat/Cryotherapy Treatment: Hot Pack Interventions - Exercise/Activities/Manual Therapy Exercises/Activities: Patient receives passive stretching bilaterally of SKTC, Piriformis, Figure 4, Lower trunk rotation, and HS x 4. Hooklying: Lower pelvic glides x 5, ball squeezes for isometric hip add, patient stops periodically due to having mm spasms to the L LE, isometric hip flexion and abd x 10. Patient ed on therex performed and its benefits as well as using heat /ice at home for pain control. Total minutes of Exercise: 16 Manual Therapy: NA HOME EXERCISE PROGRAM: pt given written HEP including pelvic tilt, hamstring stretch, piriformis stretch. - Charges Timed Code Treatment Minutes: 16 Total Treatment Time: 36 Procedures billed for this date of service:: hp, estim (un), ex Assessment: Patient responding to treatment and juan jose estim quite high. She is having slight increase in pain to the R lumbar region near the spine which improves after estim today. Therex juan jose well with only needing to reposition a few times during ball squeezes for the L LE developing mm spasms. Patient Education: Body/Joint mechanics, Home Exercise Program Patient demonstrates compliance with HEP?: Yes Short Term Goals Goal #1: pt independent with initial HEP Goal to be met by: 03/09/19 Progress towards Goal:: Progressing Goal #2: pt rate pain < 7/10 Goal to be met by: 03/09/19 Progress towards Goal:: Progressing Goal #3: pt with improved flexibility hamstrings Goal to be met by: 03/09/19 Progress towards Goal:: Progressing Goal #4: Improve Lumbar ROM Goal to be met by: 03/09/19 Progress towards Goal:: Progressing Harmonica Maker Goals Goal #1: Improve oswestry score <22 Goal to be met by: 03/23/19 Goal #2: pt report increased ability to perform normal household duties w less pain Goal to be met by: 03/23/19 Goal #3: pt with no reports of radicular pain Goal to be met by: 03/23/19 Goal #4: pt rate pain < 6/10 Goal to be met by: 03/23/19 Plan Dates of Harmonica Maker Goals: 03/23/19 Expiration date of current Insurance Approval:: 03/23/19 PLAN: Continue BIW next week for modalities and therex to ease back pain.
--- NOTE | 2019-03-07 10:37 | RS.OPPTDN ---
Subjective Date of Note: 03/07/19 Visit #: 4 Number of visits approved by Insurance: 8 Date of Evaluation: 02/20/19 Payer Source: Medicaid Treatment Diagnosis: lumbar spondyosis, low back pain with radiculopathy, sensory ataxia, Current Subjective/complaints:: Patient says her pain is low and across the waistline, more R sided. She says treatment does help reduce her pain for a "short period." *Precautions: LATEX ALLERGY - Treatment Modality: Electrical Stim Unattended Parameters/Method Applied: hivolt 4 large electrodes controlled vertically x 20 mins @ 265-285 pk volts Patient Position: Supine - Heat/Cryotherapy Treatment: Hot Pack (mid to low back) Interventions - Exercise/Activities/Manual Therapy Exercises/Activities: Patient receives passive stretching bilaterally of SKTC, Piriformis, Figure 4, Lower trunk rotation, and HS x 4. Hooklying: Lower pelvic glides x 5, ball squeezes for isometric hip add, isometric hip flexion and abd x 10. Patient educ and instructed in red latex free hooklying hip abd and hip flexion for home in which her is able to assist her with the latter exercise. Total minutes of Exercise: 17 Manual Therapy: NA HOME EXERCISE PROGRAM: pt given written HEP including pelvic tilt, hamstring stretch, piriformis stretch. - Charges Timed Code Treatment Minutes: 17 Total Treatment Time: 37 Procedures billed for this date of service:: hp, estim (un), ex Assessment: Patient presenting with reduced pain since prior session. She remains with moderate mm guarding to the bilateral lumbar paraspinals with pain more so on the R side. She is able to perform all therex without spasms today and progressing with tband exercises for home. Patient Education: Education of diagnosis, Body/Joint mechanics, Home Exercise Program Patient demonstrates compliance with HEP?: Yes Short Term Goals Goal #1: pt independent with initial HEP Goal to be met by: 03/09/19 Progress towards Goal:: Progressing Goal #2: pt rate pain < 7/10 Goal to be met by: 03/09/19 Progress towards Goal:: Progressing Goal #3: pt with improved flexibility hamstrings Goal to be met by: 03/09/19 Progress towards Goal:: Progressing Goal #4: Improve Lumbar ROM Goal to be met by: 03/09/19 Progress towards Goal:: Progressing Marbleizing Machine Tender Goals Goal #1: Improve oswestry score <22 Goal to be met by: 03/23/19 Goal #2: pt report increased ability to perform normal household duties w less pain Goal to be met by: 03/23/19 Goal #3: pt with no reports of radicular pain Goal to be met by: 03/23/19 Goal #4: pt rate pain < 6/10 Goal to be met by: 03/23/19 Plan Dates of Marbleizing Machine Tender Goals: 03/23/19 Expiration date of current Insurance Approval:: 03/23/19 PLAN: Continue for modalitieis and therex to the low back to reduce pain, tightness, and increased Le strength.
--- NOTE | 2019-03-09 14:30 | RS.OPPTDN ---
Subjective Date of Note: 03/09/19 Visit #: 5 Number of visits approved by Insurance: 8, pending Date of Evaluation: 02/20/19 Payer Source: Medicaid Treatment Diagnosis: lumbar spondyosis, low back pain with radiculopathy, sensory ataxia, Current Subjective/complaints:: Patient says her back is feeling better and stretches relieve her pain each time. She has been performing HEP. *Precautions: LATEX ALLERGY - Treatment Modality: Electrical Stim Unattended Parameters/Method Applied: hivolt 4 large pads vertically @ 345-390 pk volts x 20 mins Patient Position: Supine - Heat/Cryotherapy Treatment: Hot Pack (mid to low back in supine) Interventions - Exercise/Activities/Manual Therapy Exercises/Activities: Patient receives passive stretching bilaterally of SKTC, Piriformis, Figure 4, Lower trunk rotation, and HS x 4. Hooklying: Lower pelvic glides x 5, ball squeezes for isometric hip add, isometric hip flexion and abd x 10. Bridging 2x10. Patient educ and HEP. Total minutes of Exercise: 19 Manual Therapy: NA HOME EXERCISE PROGRAM: pt given written HEP including pelvic tilt, hamstring stretch, piriformis stretch. - Charges Timed Code Treatment Minutes: 19 Total Treatment Time: 39 Procedures billed for this date of service:: hp, estim (un), ex Assessment: Patient experiencing less intense back pain with improved flexibility today noted bilaterally with HS and SKTC. She gains much of her relief through stretching passively. She is compliant with performing HEP. Patient Education: Body/Joint mechanics, Home Exercise Program Patient demonstrates compliance with HEP?: Yes Short Term Goals Goal #1: pt independent with initial HEP Goal to be met by: 03/09/19 Progress towards Goal:: Progressing Goal #2: pt rate pain < 7/10 Goal to be met by: 03/09/19 Progress towards Goal:: Progressing Goal #3: pt with improved flexibility hamstrings Goal to be met by: 03/09/19 Progress towards Goal:: Progressing Goal #4: Improve Lumbar ROM Goal to be met by: 03/09/19 Progress towards Goal:: Progressing Balloon Seller Goals Goal #1: Improve oswestry score <22 Goal to be met by: 03/23/19 Goal #2: pt report increased ability to perform normal household duties w less pain Goal to be met by: 03/23/19 Goal #3: pt with no reports of radicular pain Goal to be met by: 03/23/19 Goal #4: pt rate pain < 6/10 Goal to be met by: 03/23/19 Plan Dates of Balloon Seller Goals: 03/23/19 Expiration date of current Insurance Approval:: 03/23/19 PLAN: Continue with modalties to ease mm guarding and continue stretching for flexibility and strengthening trunk activities.
--- NOTE | 2019-03-14 14:48 | RS.OPPTDN ---
Subjective Date of Note: 03/14/19 Visit #: 6 Number of visits approved by Insurance: 8 Date of Evaluation: 02/20/19 Payer Source: Medicaid Treatment Diagnosis: lumbar spondyosis, low back pain with radiculopathy, sensory ataxia, Current Subjective/complaints:: Patient reports stiffness and ache to her back and knees related to damp weather. She says in general she feels therapy has been helping and seems to be "getting around better." *Precautions: LATEX ALLERGY - Treatment Modality: Electrical Stim Unattended (mid to low back with estim) Parameters/Method Applied: IFC @ 29ma x 20 mins to bilateral lumbar paraspinals and superior gluts Patient Position: Supine - Heat/Cryotherapy Treatment: Hot Pack Interventions - Exercise/Activities/Manual Therapy Exercises/Activities: Patient receives passive stretching bilaterally of SKTC, Piriformis, Figure 4, Lower trunk rotation, and HS x 4. Hooklying: Lower pelvic glides x 5, ball squeezes for isometric hip add, isometric hip flexion and abd x 10. Bridging 2x10. SLR x 8. Some rest breaks were given during bridging and SLR due to fatigue. Patient educ and HEP. Total minutes of Exercise: 18 Manual Therapy: NA HOME EXERCISE PROGRAM: pt given written HEP including pelvic tilt, hamstring stretch, piriformis stretch. - Charges Timed Code Treatment Minutes: 18 Total Treatment Time: 38 Procedures billed for this date of service:: hp, estim (un), ex Assessment: Patient able to find relief through stretches today providing improved ambulation. She continues with moderate mm guarding throughout the lumbar region. SLight improved bed mobs needing less assistance with supine to sit. Patient Education: Home Exercise Program, Education of Plan of Care Patient demonstrates compliance with HEP?: Yes Short Term Goals Goal #1: pt independent with initial HEP Goal to be met by: 03/09/19 Progress towards Goal:: Progressing Goal #2: pt rate pain < 7/10 Goal to be met by: 03/09/19 Progress towards Goal:: Progressing Goal #3: pt with improved flexibility hamstrings Goal to be met by: 03/09/19 Progress towards Goal:: Progressing Goal #4: Improve Lumbar ROM Goal to be met by: 03/09/19 Progress towards Goal:: Progressing Fdc Goals Goal #1: Improve oswestry score <22 Goal to be met by: 03/23/19 Goal #2: pt report increased ability to perform normal household duties w less pain Goal to be met by: 03/23/19 Goal #3: pt with no reports of radicular pain Goal to be met by: 03/23/19 Goal #4: pt rate pain < 6/10 Goal to be met by: 03/23/19 Plan Dates of Piercer Goals: 03/23/19 Expiration date of current Insurance Approval:: 03/23/19 PLAN: Patient to continue x 2 more sessions.
--- NOTE | 2019-03-16 10:34 | RS.OPPTDN ---
Subjective Date of Note: 03/16/19 Visit #: 7 Number of visits approved by Insurance: 8 Date of Evaluation: 02/20/19 Payer Source: Medicaid Treatment Diagnosis: lumbar spondyosis, low back pain with radiculopathy, sensory ataxia, Current Subjective/complaints:: Patient says she "had a spell" since her last appt. States she turned her back and twisted to avoid a fall and now is hurting more. She says she hurts all over and not anywhere specific. *Precautions: LATEX ALLERGY - Treatment Modality: Electrical Stim Unattended Parameters/Method Applied: IFC @ 31 ma x 20 mins to the lumbar paraspinals and superior gluts. Patient Position: Supine - Heat/Cryotherapy Treatment: Hot Pack (mid to low back with estim) Interventions - Exercise/Activities/Manual Therapy Exercises/Activities: Concentrated treatment on assisted stretching to relieve pain and to work on activities that she will need help with and allow her to perform trunk stability independently at home over the weekend. She receives SKTC, HS, Piriformis, Figure 4, and lower trunk rotation bilaterally x 5. Patient educ and HEP. Total minutes of Exercise: 16 Manual Therapy: NA HOME EXERCISE PROGRAM: pt given written HEP including pelvic tilt, hamstring stretch, piriformis stretch. - Charges Timed Code Treatment Minutes: 16 Total Treatment Time: 36 Procedures billed for this date of service:: hp, estim (un), ex Assessment: Patient presents with increased mm guarding throughout the lumbar region with admission of elevated pain as well. She finds relief with continued stretching bilaterally in which she experiences reduced pain following therex today. She initially demo difficulty with sit to supine, but after session she required very little assistance to supine to sit. Patient Education: Body/Joint mechanics, Home Exercise Program Patient demonstrates compliance with HEP?: Yes Short Term Goals Goal #1: pt independent with initial HEP Goal to be met by: 03/09/19 Progress towards Goal:: Progressing Goal #2: pt rate pain < 7/10 Goal to be met by: 03/09/19 Progress towards Goal:: Progressing Goal #3: pt with improved flexibility hamstrings Goal to be met by: 03/09/19 Progress towards Goal:: Progressing Goal #4: Improve Lumbar ROM Goal to be met by: 03/09/19 Progress towards Goal:: Progressing Snf Goals Goal #1: Improve oswestry score <22 Goal to be met by: 03/23/19 Goal #2: pt report increased ability to perform normal household duties w less pain Goal to be met by: 03/23/19 Goal #3: pt with no reports of radicular pain Goal to be met by: 03/23/19 Goal #4: pt rate pain < 6/10 Goal to be met by: 03/23/19 Plan Dates of Mending Carrier Goals: 03/23/19 Expiration date of current Insurance Approval:: 03/23/19 PLAN: Continue x 1 more session per order.
--- NOTE | 2019-03-21 16:27 | RS.OPPTDN ---
Subjective Date of Note: 03/21/19 Visit #: 8 Number of visits approved by Insurance: pending, requested 8 Date of Evaluation: 02/20/19 Payer Source: Medicaid Treatment Diagnosis: lumbar spondyosis, low back pain with radiculopathy, sensory ataxia, Current Subjective/complaints:: Patient says she is hurting all over today due to the rain. She reports her knees are hurting more than her back today. She says on good days her pain is 6/10 and today it is 8/10. She says it is still hard to stand for very long and prolonged walking. She says she is working on HEP. *Precautions: LATEX ALLERGY - Treatment Modality: Electrical Stim Unattended Parameters/Method Applied: IFC 4 large pads to the lumbar and superior gluts x 20 mins @ 21 ma Patient Position: Supine - Heat/Cryotherapy Treatment: Hot Pack Interventions - Exercise/Activities/Manual Therapy Exercises/Activities: Concentrated treatment on assisted stretching to relieve pain and to work on activities that she will need help with and allow her to perform trunk stability independently at home beyond discharge today. She receives SKTC, HS, Piriformis, Figure 4, and lower trunk rotation bilaterally x 5. She performs isometric hip abd/add/flexion x 10. Bridging and SLR x 10. Instructed in HEP with more tbands and handouts. Assisted pt with Oswestry LBP scale and reassessed goals. Total minutes of Exercise: 22 Manual Therapy: NA HOME EXERCISE PROGRAM: pt given written HEP including pelvic tilt, hamstring stretch, piriformis stretch. - Charges Timed Code Treatment Minutes: 22 Total Treatment Time: 42 Procedures billed for this date of service:: hp, estim (un), ex Assessment: Patient improving with Oswestry score slightly and did progress with goals. She maintains moderate pain level on average, but is heightened today based on weather. She demo increased hamstring flexibility on the L to WNL. She was encouraged to continue with self stretching and perform HEP. Patient Education: Education of diagnosis, Home Exercise Program, Education of Plan of Care Patient demonstrates compliance with HEP?: Yes Short Term Goals Goal #1: pt independent with initial HEP Goal to be met by: 03/09/19 Progress towards Goal:: Met Goal #2: pt rate pain < 7/10 Goal to be met by: 03/09/19 Progress towards Goal:: Met Comments:: 6/10 avg Goal #3: pt with improved flexibility hamstrings Goal to be met by: 03/09/19 Progress towards Goal:: Partially Met Comments:: met for the L, moderately tight to the R HS Goal #4: Improve Lumbar ROM Goal to be met by: 03/09/19 Progress towards Goal:: Progressing Desktop Publisher Goals Goal #1: Improve oswestry score <22 Goal to be met by: 03/23/19 Progress towards goal: Progressing Comments: 24 Goal #2: pt report increased ability to perform normal household duties w less pain Goal to be met by: 03/23/19 Progress towards goal: Progressing Comments: somewhat Goal #3: pt with no reports of radicular pain Goal to be met by: 03/23/19 Progress towards goal: Progressing Comments: Patient admits it is less often Goal #4: pt rate pain < 6/10 Goal to be met by: 03/23/19 Progress towards goal: Progressing (on avg 04/09) Plan Dates of Desktop Publisher Goals: 03/23/19 Expiration date of current Insurance Approval:: 03/23/19 PLAN: Discharge as she has completed POC
== END 2019-03-30 23:59 ==
PROVIDERS: ATTEND Psychiatry & Neurology Neurology
DX: M47.816 Spondylosis without myelopathy or radiculopathy, lumbar region (principal); R27.8 Other lack of coordination; E11.42 Type 2 diabetes mellitus with diabetic polyneuropathy

== ENCOUNTER 2019-04-09 07:00 | Day surgery (SDC) ==
[2019-04-09] MEDS: TETRACAINE 0.5% UNIT-DOSE OP PRN ×4 (07:15→09:21)
[2019-04-09] MEDS: CYCLOGYL 2% OPTH OP PRN ×3 (07:15→07:25)
[2019-04-09] MEDS: AK-DILATE 10% OPTH SOL OP PRN ×3 (07:15→07:25)
[2019-04-09] MEDS: OCUFEN 0.03% OPTH SOL OP PRN ×4 (07:16→09:32)
[2019-04-09] MEDS ORDERED: DIAMOX PO STA (07:34)
[2019-04-09 07:41] VITALS: TEMP 97.6
[2019-04-09] MEDS: LIDOCAINE 1% 20 ML MDV ID STA ×2 (09:00→09:22)
[2019-04-09] MEDS ORDERED: VERSED ONE (09:10)
[2019-04-09 13:05] VITALS: BP 136/68
--- NOTE | 2019-04-12 09:12 | OP ---
PREOPERATIVE DIAGNOSIS: PHACO CATARACT EXTRACTION WITH IOL RIGHT EYE. POSTOPERATIVE DIAGNOSIS: SAME. OPERATION PHACOEMULSIFICATION ASPIRATION OF CATARACT RIGHT EYE. PLACEMENT OF POSTERIOR CHAMBER LENS. PHACO TIME 47 SECONDS AT 7% POWER. LENS MODEL SHELLY [id number]. DIOPTER 19.00D/-0.36. TECHNIQUE: CLEAR CORNEA. ANESTHESIA: TOPICAL ANESTHESIA W/ANESTHESIA MONITORING. OPERATIVE REPORT: Topical anesthesia consisting of Tetracaine was applied to the cornea and Xylocaine Methyl Paraben free of MFP was injected intracamerally into the anterior chamber. The patient was then brought into the operating room , prepped and draped in the usual ophthalmic manner. A lid speculum was placed and the operating microscope was used. A paracentesis was made at the 3 o' clock position. A clear corneal incision was made just out to the limbus. The anterior chamber was entered just inside the clear cornea. Viscoelastic was injected into the anterior chamber. A capsulotomy was performed with a bent # 27 gauge needle. Phacoemulsification was then performed in the posterior chamber. After completion of the phacoemulsification, residual cortical material was aspirated with the irrigation-aspiration system. The posterior capsule was polished. Viscoelastic was injected into the anterior and posterior chambers to inflate the capsular bag. Lens were placed via an Unfolder system and stabilized in the bag. Viscoelastic was removed from the anterior chamber. The wound was checked for any leakage. The four sponges were removed from the fornix. Topical antibiotic steroid and nonsteroidal drops were also applied to the cornea. A Menard shield was applied. The patient left the operating room in good condition without any complications. INTRAOPERATIVE MEDICATIONS: Xylocaine Methyl Paraben Free MPF MTDD
== END 2019-04-09 10:20 | disposition home or self-care (01) ==
LOC: SURG 07:00
PROVIDERS: ATTEND Ophthalmology
DX: H25.13 Age-related nuclear cataract, bilateral (principal); H25.013 Cortical age-related cataract, bilateral; E11.9 Type 2 diabetes mellitus without complications; I78.1 Nevus, non-neoplastic

== ENCOUNTER 2019-06-11 06:20 | Day surgery (SDC) ==
[2019-06-11] MEDS: CYCLOGYL 2% OPTH OP PRN ×3 (06:30→06:40)
[2019-06-11] MEDS: TETRACAINE 0.5% UNIT-DOSE OP PRN ×5 (06:30→07:54)
[2019-06-11] MEDS: AK-DILATE 10% OPTH SOL OP PRN ×3 (06:31→06:41)
[2019-06-11] MEDS ORDERED: BETADINE OPTH PREP OP ONE (06:41)
[2019-06-11] MEDS ORDERED: DIAMOX PO STA ×2 (06:41→06:46)
[2019-06-11] MEDS ORDERED: BSS WITH EPINEPHRINE OP ONE (06:41)
[2019-06-11] MEDS: LIDOCAINE 1% 20 ML MDV ID STA ×2 (07:30→07:55)
[2019-06-11] MEDS ORDERED: SUBLIMAZE ONE (07:44)
[2019-06-11] MEDS ORDERED: VERSED ONE (07:44)
[2019-06-11 08:43] VITALS: BP 104/69; TEMP 97.3
--- NOTE | 2019-06-12 09:03 | OP ---
PREOPERATIVE DIAGNOSIS: VISUALLY SIGNIFICANT CATARACT, LEFT EYE. POSTOPERATIVE DIAGNOSIS: SAME. OPERATION PHACOEMULSIFICATION ASPIRATION OF CATARACT LEFT EYE. PLACEMENT OF POSTERIOR CHAMBER LENS. PHACO TIME 39.6 SECONDS AT 14.0% POWER. LENS MODEL TECTREMAINE [id number]. DIOPTER +18.5D. TECHNIQUE: CLEAR CORNEA. ANESTHESIA: TOPICAL ANESTHESIA W/ANESTHESIA MONITORING. OPERATIVE REPORT: Topical anesthesia consisting of Tetracaine was applied to the cornea and Xylocaine Methyl Paraben free of MFP was injected intracamerally into the anterior chamber. The patient was then brought into the operating room , prepped and draped in the usual ophthalmic manner. A lid speculum was placed and the operating microscope was used. A paracentesis was made at the 3 o' clock position. A clear corneal incision was made just out to the limbus. The anterior chamber was entered just inside the clear cornea. Viscoelastic was injected into the anterior chamber. A capsulotomy was performed with a bent # 27 gauge needle. Phacoemulsification was then performed in the posterior chamber. After completion of the phacoemulsification, residual cortical material was aspirated with the irrigation-aspiration system. The posterior capsule was polished. Viscoelastic was injected into the anterior and posterior chambers to inflate the capsular bag. Lens were placed via an Unfolder system and stabilized in the bag. Viscoelastic was removed from the anterior chamber. The wound was checked for any leakage. The four sponges were removed from the fornix. Topical antibiotic steroid and nonsteroidal drops were also applied to the cornea. A Menard shield was applied. The patient left the operating room in good condition without any complications. INTRAOPERATIVE MEDICATIONS: Xylocaine Methyl Paraben Free MPF MTDD
== END 2019-06-11 08:55 | disposition home or self-care (01) ==
LOC: SURG 06:20
PROVIDERS: ATTEND Ophthalmology
DX: Z96.1 Presence of intraocular lens (principal); H25.012 Cortical age-related cataract, left eye; H25.12 Age-related nuclear cataract, left eye